=== PATIENT | female | born 1945 | race Caucasian/White ===

== ENCOUNTER 2021-11-05 13:34 | Inpatient (IN) ==
[2021-11-05 14:25] LABS: Basophils # (auto) 0.05 K/uL (0-0.2); Basophils % (auto) 0.5 %; Eosinophils # (auto) 0.42 K/uL (0-0.50); Eosinophils % (auto) 4.1 %; Hematocrit (blood only) 31.2 % (34.1-44.9); Hemoglobin 9.6 g/dl (12.0-16.0); Immature Granulocytes # (auto) 0.08 K/uL (0.00-0.02); Immature Granulocytes % (auto) 0.8 %; Lymphocytes # (auto) 1.92 K/uL (1.2-3.4); Lymphocytes % (auto) 18.8 %; Mean Corpuscular Hemoglobin 26.7 pg (25.0-34.0); Mean Corpuscular Hgb Conc 30.8 g/dL (32.0-36.0); Mean Corpuscular Volume 86.7 fL (80.0-100.0); Monocytes # (auto) 0.71 K/uL (0.24-0.82); Monocytes % (auto) 6.9 %; Neutrophils # (auto) 7.05 K/uL (1.4-6.5); Neutrophils % (auto) 68.9 %; Platelet Count 565 K/uL (130-400); RDW Coefficient of Variation 14.4 % (11.5-14.5); RDW Standard Deviation 45.5 fL (36.4-46.3); White Blood Count 10.23 K/ul (4.8-10.8)
[2021-11-05 14:38] LABS: Partial Thromboplastin Time 27.6 Seconds (21.0-31.0); Prothrombin Time 10.9 Seconds (9.0-12.0)
--- NOTE | 2021-11-05 14:47 | Electrocardiogram Report ---
Test Reason : Blood Pressure : / mmHG Vent. Rate : 068 BPM Atrial Rate : 078 BPM P-R Int : 164 ms QRS Dur : 092 ms QT Int : 450 ms P-R-T Axes : 030 031 009 degrees QTc Int : 478 ms Sinus rhythm with Premature atrial complexes , some consecutive Anterior infarct , age undetermined Abnormal ECG When compared with ECG of 24-FEB-2010 12:14, Premature atrial complexes are now Present T wave inversion now evident in Anterior leads QT has lengthened Confirmed by Jacobo Talley ([id number]) on 11/05/2021 2:47:06 PM Referred By: Confirmed By:Eduard Talley
--- NOTE | 2021-11-05 14:47 | XRay Report ---
XR chest 2V PA/lateral CLINICAL HISTORY: Chest Pain TECHNIQUE: 2 views of the chest were obtained. Comparison: Comparison is made to chest radiograph 02/25/2020 FINDINGS: No lines and tubes are seen. Calcified aortic knob is seen. The lungs are clear. No evidence of pleur al effusion or pneumothorax. IMPRESSION: No acute chest disease. ACT 112: Negative or not required by law. Electronically signed by: Fab Crooks M.D. 11/05/2021 2:45 PM
[2021-11-05 14:53] LABS: Troponin I High Sensitivity 2.9 pg/ml (0-14)
[2021-11-05 15:00] LABS: Albumin Globulin Ratio 0.9 (0.9-2); Albumin Level 3.2 gm/dl (3.4-5.0); BUN Creatinine Ratio 23.2 (10-20); Bilirubin,Total 0.3 mg/dl (0.2-1.0); Calcium 8.9 mg/dl (8.5-10.1); Creatinine Clr Calc Pharmacy 45.8 ml/min; Est GFR (African American) 64.6 ml/min; Est GFR (Non-African American) 55.7 ml/min; Globulin 3.5 gm/dl (2.5-4.0); Potassium 4.5 mmol/L (3.5-5.1); Total Protein 6.7 gm/dl (6.0-8.3)
--- NOTE | 2021-11-05 15:48 | Emergency Department Note ---
Impression & Plan Atrial tachycardia, Headache, Dizziness, Hypotension ED Provider Note NAME: ANGEL TSANG AGE: 76 SEX: F : 1945 ARRIVES VIA: Walk-In INFORMANT: Patient ED PROVIDER(S): Sam Concepcion DO CHIEF COMPLAINT: headache HPI: Patient is a 76-year-old female who presents the ER for headache. She notes that she was discharged from [facility] with extremely high blood pressures and heart rates. She was diagnosed with a heart attack. And she was discharged. She has been short of breath since then but that has been unchanged. Snacking better or worse. No chest pain. Headache is in the front and the back about a 5 out of 10. She does not want anything for pain. She does admit to some blurry vision bilaterally which has been present for the past week. No other exacerbating or remitting factors. She denies any loss of vision. No eye pain. No pain with chewing or eating. ROS: See above HPI for pertinent positives & negatives. A total of 10 systems reviewed and were otherwise negative. PAST MEDICAL HISTORY:See Below PAST SURGICAL HISTORY:See Below FAMILY HISTORY:See Below SOCIAL HISTORY:See Below HOME MEDICATIONS:See Below ALLERGIES:See Below VITALS:See Below PHYSICAL EXAMINATION: GENERAL: Sitting up in bed, alert, well appearing, well nourished, no distress, non-toxic EYE EXAM: normal conjunctiva. PERRL and EOM's intact. OROPHARYNX: no exudate, no erythema, lips, buccal mucosa, and tongue normal and mucous membranes are moist NECK: supple, no nuchal rigidity, no adenopathy, non-tender LUNGS: Clear to auscultation. Normal chest wall mechanics HEART: no murmurs, S1 normal and S2 normal ABDOMEN: abdomen soft, non-tender, normo-active bowel sounds, no masses, no rebound or guarding. UPPER EXTREMITIES: upper extremities are grossly normal. LOWER EXTREMITIES: No pitting edema. NEURO EXAM: Normal sensorium, cranial nerves II-XII intact, normal speech, no weakness of arms, no weakness of legs. No drift. Finger to nose intact. Gross sensation intact. MEDICAL DECISION MAKING: Patient is a 76-year-old female who presents the ER with a past medical history recent NSTEMI for weakness and shortness of breath with movement. IV was established blood work was obtained. EKG shows new T wave changes. Labs show no significant leukocytosis and mild anemia 9.6. INR was unremarkable. BMP along with LFTs bilirubin and troponin were unremarkable. COVID was negative. CT head was unremarkable. Throughout her stay she intermittently went in and out of a atrial tachycardia. Favor that this likely an underlying atrial flutter but cannot be certain. She was given 1 dose of Lopressor. She was up dated bedside discussed with the hospitalist admitted for further work-up to [facility]. Triage Nursing notes reviewed. Limited review of prior medical records performed Vital Signs: reviewed and remarkable for no significant abnormalities Differential diagnosis: Differential diagnoses includes but is not limited to gastritis, peptic ulcer disease, GERD, gallbladder disease, pancreatitis, small bowel obstruction, acute coronary syndrome, pericarditis, ischemic bowel, irritable bowel disease, irritable bowel syndrome, appendicitis, diverticulitis, malignancy, hernia, urinary tract infection, torsion, perforation, trauma, infectious. ER treatment provided: See below Diagnostics interpreted by me: ECG: Sinus rhythm rate of 68 Normal axis T wave inversion V3 and lead III T wave version in V4 QTC 478 Cardiac Monitoring: An order was placed for continuous cardiac monitoring. The monitor shows a rate of 70 with sinus rhythm. Laboratory studies: As stated above and show below. 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 Beliefs That Will Affect Care: None Current Living Situation: Spouse Feels Safe at Home: Yes Safety Concerns: Feels Safe At This Time Assistive Devices: Denture - Upper, Glasses and Hearing Aid - Left Allergies Allergies Allergy/AdvReac Type Severity Reaction Status Date / Time Penicillins Allergy Mild Unknown Verified 11/05/21 21:23 Home Meds Home Medications Medication Instructions Recorded Confirmed acetaminophen 500 mg tablet 1,000 mg PO BID 11/05/21 11/05/21 alendronate 70 mg tablet 70 tab PO WK 11/05/21 11/05/21 ascorbic acid (vitamin C) 500 mg 500 mg PO Q2D 11/05/21 11/05/21 tablet aspirin 81 mg tablet,delayed 81 mg PO DAILY 11/05/21 11/05/21 release biotin 10,000 mcg capsule 10,000 mcg PO DAILY 11/05/21 11/05/21 calcium carbonate 600 mg-vitamin 1 tab PO TID 11/05/21 11/05/21 D3 5 mcg (200 unit) tablet cyanocobalamin (vitamin B-12) 1,000 mcg PO DAILY 11/05/21 11/05/21 1,000 mcg tablet ergocalciferol (vitamin D2) 1,250 1,250 mcg PO .[id number] 11/05/21 11/05/21 mcg (50,000 unit) capsule (Vitamin D2) escitalopram oxalate 20 mg tablet 20 tab PO DAILY 11/05/21 11/05/21 ferrous sulfate 325 mg (65 mg 325 mg PO BID 11/05/21 11/05/21 iron) tablet gabapentin 600 mg tablet 600 tab PO TID 11/05/21 11/05/21 levothyroxine 88 mcg tablet 88 mcg PO DAILYBB 11/05/21 11/05/21 linaclotide 145 mcg capsule 145 mcg PO DAILY 11/05/21 11/05/21 (Linzess) loratadine 10 mg tablet 10 mg PO DAILY PRN Allergy Symptoms 11/05/21 11/05/21 magnesium oxide 400 mg PO DAILY 11/05/21 11/05/21 quetiapine 100 mg tablet 100 tab PO HS 11/05/21 11/05/21 ropinirole 0.5 mg tablet 0.5 tab PO HS 11/05/21 11/05/21 sotalol 80 mg tablet 80 mg PO BID 11/05/21 11/05/21 Results & Data (ED) Vital Signs Vital Signs - 24 hr 11/05/21 13:35 11/05/21 15:49 11/05/21 17:16 Temperature 36.5 C Temperature Source Temporal Artery Scan Pulse Rate 72 67 121 H Pulse Rhythm Respiratory Rate 16 20 Blood Pressure 109/66 97/56 L 104/58 L Blood Pressure Mean 80 69 Pulse Oximetry 96 96 Oxygen Delivery Method Room Air Sepsis Recent Fever Within 48 Hours No Sepsis New/Unexplained Change in Mental Status No Sepsis Action Taken by Nursing No Action Required 11/05/21 15:50 11/05/21 16:00 11/05/21 16:10 Temperature Temperature Source Pulse Rate 70 69 120 H Pulse Rhythm Respiratory Rate 14 20 16 Blood Pressure Blood Pressure Mean Pulse Oximetry 98 Oxygen Delivery Method Room Air Sepsis Recent Fever Within 48 Hours Sepsis New/Unexplained Change in Mental Status Sepsis Action Taken by Nursing 11/05/21 16:20 11/05/21 16:30 11/05/21 16:40 Temperature Temperature Source Pulse Rate 122 H 121 H 71 Pulse Rhythm Respiratory Rate 13 13 22 Blood Pressure Blood Pressure Mean Pulse Oximetry Oxygen Delivery Method Sepsis Recent Fever Within 48 Hours Sepsis New/Unexplained Change in Mental Status Sepsis Action Taken by Nursing 11/05/21 16:41 11/05/21 16:41 11/05/21 16:50 Temperature Temperature Source Pulse Rate 82 122 H Pulse Rhythm Respiratory Rate 14 23 Blood Pressure 101/68 Blood Pressure Mean 79 Pulse Oximetry 94 Oxygen Delivery Method Room Air Sepsis Recent Fever Within 48 Hours Sepsis New/Unexplained Change in Mental Status Sepsis Action Taken by Nursing 11/05/21 17:00 11/05/21 17:00 11/05/21 17:10 Temperature Temperature Source Pulse Rate 69 122 H Pulse Rhythm Respiratory Rate 15 21 Blood Pressure 104/58 L Blood Pressure Mean 73 Pulse Oximetry Oxygen Delivery Method Sepsis Recent Fever Within 48 Hours Sepsis New/Unexplained Change in Mental Status Sepsis Action Taken by Nursing 11/05/21 17:20 11/05/21 17:20 11/05/21 17:27 Temperature Temperature Source Pulse Rate 120 H 120 H Pulse Rhythm Respiratory Rate 21 15 Blood Pressure 99/69 L Blood Pressure Mean 79 Pulse Oximetry 94 Oxygen Delivery Method Room Air Sepsis Recent Fever Within 48 Hours Sepsis New/Unexplained Change in Mental Status Sepsis Action Taken by Nursing 11/05/21 17:27 11/05/21 17:30 11/05/21 17:30 Temperature Temperature Source Pulse Rate 121 H Pulse Rhythm Respiratory Rate 16 Blood Pressure 95/66 L 106/75 Blood Pressure Mean 75 85 Pulse Oximetry 94 Oxygen Delivery Method Room Air Sepsis Recent Fever Within 48 Hours Sepsis New/Unexplained Change in Mental Status Sepsis Action Taken by Nursing 11/05/21 17:40 11/05/21 18:05 11/05/21 17:45 Temperature Temperature Source Pulse Rate 119 H 120 H Pulse Rhythm Regular Respiratory Rate 18 22 Blood Pressure 104/76 Blood Pressure Mean 85 Pulse Oximetry 95 97 Oxygen Delivery Method Room Air Room Air Sepsis Recent Fever Within 48 Hours Sepsis New/Unexplained Change in Mental Status Sepsis Action Taken by Nursing 11/05/21 17:45 11/05/21 18:00 11/05/21 18:00 Temperature Temperature Source Pulse Rate 120 H 118 H Pulse Rhythm Respiratory Rate 17 16 Blood Pressure 108/75 Blood Pressure Mean 86 Pulse Oximetry 95 97 Oxygen Delivery Method Room Air Room Air Sepsis Recent Fever Within 48 Hours Sepsis New/Unexplained Change in Mental Status Sepsis Action Taken by Nursing Laboratory Data Result diagrams: 11/05/21 14:09 11/05/21 14:09 Lab Results 11/05/21 11/05/21 11/05/21 Range/Units 14:09 14:09 14:09 WBC 10.23 (4.8-10.8) K/ul RBC 3.60 L (3.93-5.22) M/uL Hgb 9.6 L (12.0-16.0) g/dl Hct 31.2 L (34.1-44.9) % MCV 86.7 (80.0-100.0) fL MCH 26.7 (25.0-34.0) pg MCHC 30.8 L (32.0-36.0) g/dL RDW Std Deviation 45.5 (36.4-46.3) fL RDW Coeff of Musa 14.4 (11.5-14.5) % Plt Count 565 H (130-400) K/uL MPV 10.0 (9.4-12.3) fL Immature Gran % (Auto) 0.8 % Neut % (Auto) 68.9 % Lymph % (Auto) 18.8 % [place] % (Auto) 6.9 % Eos % (Auto) 4.1 % Baso % (Auto) 0.5 % Neut # (Auto) 7.05 H (1.4-6.5) K/uL Lymph # (Auto) 1.92 (1.2-3.4) K/uL [place] # (Auto) 0.71 (0.24-0.82) K/uL Eos # (Auto) 0.42 (0-0.50) K/uL Baso # (Auto) 0.05 (0-0.2) K/uL Immature Gran # (Auto) 0.08 H (0.00-0.02) K/uL ESR (0-30) mm/hr PT 10.9 (9.0-12.0) Seconds INR 1.0 (0.9-1.1) APTT 27.6 (21.0-31.0) Seconds PTT Ratio 1.0 Sodium 138 (136-145) mmol/L Potassium 4.5 (3.5-5.1) mmol/L Chloride 105 (98-107) mmol/L Carbon Dioxide 26 (21-32) mmol/L Anion Gap 7 (3-11) BUN 23 (6-23) mg/dl Creatinine 0.99 (0.6-1.2) mg/dl Est Cr Clr Drug Dosing 45.8 ml/min Est GFR ( Amer) 64.6 ml/min Est GFR (Non-Af Amer) 55.7 ml/min BUN/Creatinine Ratio 23.2 H (10-20) Glucose 99 (70-99(Fasting)) mg/dl Calcium 8.9 (8.5-10.1) mg/dl Magnesium (1.7-2.4) mg/dl Total Bilirubin 0.3 (0.2-1.0) mg/dl AST 29 (13-39) U/L ALT 30 (7-52) U/L Alkaline Phosphatase 70 (34-104) U/L Troponin I High Sens 2.9 (0-14) pg/ml Total Protein 6.7 (6.0-8.3) gm/dl Albumin 3.2 L (3.4-5.0) gm/dl Globulin 3.5 (2.5-4.0) gm/dl Albumin/Globulin Ratio 0.9 (0.9-2) SARS-CoV-2, RNA, NAAT (NEGATIVE) 11/05/21 11/05/21 11/05/21 Range/Units 14:09 14:09 17:45 WBC (4.8-10.8) K/ul RBC (3.93-5.22) M/uL Hgb (12.0-16.0) g/dl Hct (34.1-44.9) % MCV (80.0-100.0) fL MCH (25.0-34.0) pg MCHC (32.0-36.0) g/dL RDW Std Deviation (36.4-46.3) fL RDW Coeff of Musa (11.5-14.5) % Plt Count (130-400) K/uL MPV (9.4-12.3) fL Immature Gran % (Auto) % Neut % (Auto) % Lymph % (Auto) % [place] % (Auto) % Eos % (Auto) % Baso % (Auto) % Neut # (Auto) (1.4-6.5) K/uL Lymph # (Auto) (1.2-3.4) K/uL [place] # (Auto) (0.24-0.82) K/uL Eos # (Auto) (0-0.50) K/uL Baso # (Auto) (0-0.2) K/uL Immature Gran # (Auto) (0.00-0.02) K/uL ESR 80 H (0-30) mm/hr PT (9.0-12.0) Seconds INR (0.9-1.1) APTT (21.0-31.0) Seconds PTT Ratio Sodium (136-145) mmol/L Potassium (3.5-5.1) mmol/L Chloride (98-107) mmol/L Carbon Dioxide (21-32) mmol/L Anion Gap (3-11) BUN (6-23) mg/dl Creatinine (0.6-1.2) mg/dl Est Cr Clr Drug Dosing ml/min Est GFR ( Amer) ml/min Est GFR (Non-Af Amer) ml/min BUN/Creatinine Ratio (10-20) Glucose (70-99(Fasting)) mg/dl Calcium (8.5-10.1) mg/dl Magnesium 2.4 (1.7-2.4) mg/dl Total Bilirubin (0.2-1.0) mg/dl AST (13-39) U/L ALT (7-52) U/L Alkaline Phosphatase (34-104) U/L Troponin I High Sens (0-14) pg/ml Total Protein (6.0-8.3) gm/dl Albumin (3.4-5.0) gm/dl Globulin (2.5-4.0) gm/dl Albumin/Globulin Ratio (0.9-2) SARS-CoV-2, RNA, NAAT NEGATIVE (NEGATIVE) Administered Medications Discontinued Medications Gadobutrol (Gadobutrol 65ml Vial) 5.5 ml IV ONCE ONE Stop: 11/05/21 20:02 Last Admin: 11/05/21 20:02 Dose: 5.5 ml Documented By: AF(2) Sodium Chloride (Nss 1000ml) 500 mls @ 999 mls/hr IV .Q31M ONE Stop: 11/05/21 17:25 Last Infusion: 11/05/21 18:00 Dose: 0 mls/hr Documented By: Admin: 11/05/21 17:24 Dose: 999 mls/hr Documented By: HG Metoprolol Tartrate (Metoprolol Tartrate 1 Mg/Ml Vial) 2.5 mg IV NOW STA Stop: 11/05/21 16:56 Last Admin: 11/05/21 17:16 Dose: 2.5 mg Documented By: LIS Imaging Data Radiologist's Impression: Chest X-Ray 11/05/21 13:42 XR chest 2V PA/lateral CLINICAL HISTORY: Chest Pain TECHNIQUE: 2 views of the chest were obtained. Comparison: Comparison is made to chest radiograph 02/25/2020 FINDINGS: No lines and tubes are seen. Calcified aortic knob is seen. The lungs are clear. No evidence of pleural effusion or pneumothorax. IMPRESSION: No acute chest disease. ACT 112: Negative or not required by law. Electronically signed by: Fab Crooks M.D. 11/05/2021 2:[address] 11/05/21 15:41 CT head/brain wo con CLINICAL HISTORY: shell COMPARISON STUDY: No previous studies for comparison. CT DOSE: 638.56 mGycm TECHNIQUE: Standard CT of the Brain was performed without IV contrast. A dose lowering technique was utilized adhering to the principles of ALARA. FINDINGS: Extraaxial space: There is no evidence for subdural hematoma. There are no extra-axial fluid collections. Ventricles and cisterns: The ventricles are mildly dilated bilaterally. There is no evidence for midline shift or mass effect. Parenchyma: There is no subarachnoid or intraparenchymal hemorrhage. There is no evidence for an acute infarct or cerebral edema. . There is mild cerebral cor tical atrophy and decreased attenuation in the periventricular white matter representing remote small vessel disease. There are no gross mass lesions. Osseous structures: There is no evidence for an acute fracture. The visualized paranasal sinuses are clear. The mastoid air cells are clear bilaterally. Soft tissues: There is no evidence for focal soft tissue swelling. IMPRESSION: 1. No acute intracerebral pathology. 2. Mild cerebral cortical atrophy and remote small vessel disease. ACT 112: Negative or not required by law. Electronically signed by: Kenny Suh M.D. 11/05/2021 4:37 PM Discharge Plan Visit Data Chief Complaint: Headache Stated Complaint: HEADACHE, BLURRY VISION, @[facility], ED Provider: Sam Concepcion Discharge Problem: Atrial tachycardia, Headache, Dizziness, Hypotension Patient Disposition: Admitted As Inpatient Discharge Instructions Interventions: ED Discharge Assessment Last Done: 11/05/21 20:24
--- NOTE | 2021-11-05 16:39 | CT Scan Report ---
CT head/brain wo con CLINICAL HISTORY: shell COMPARISON STUDY: No previous studies for comparison. CT DOSE: 638.56 mGycm TECHNIQUE: Standard CT of the Brain was performed without IV contrast. A dose lowering technique was utilized adhering to the principles of ALARA. FINDINGS: Extraaxial space: There is no evidence for subdural hematoma. There are no extra-axial fluid collecti ons. Ventricles and cisterns: The ventricles are mildly dilated bilaterally. There is no evidence for midl ine shift or mass effect. Parenchyma: There is no subarachnoid or intraparenchymal hemorrhage. There is no evidence for an acut e infarct or cerebral edema. . There is mild cerebral cortical atrophy and decreased attenuation in t he periventricular white matter representing remote small vessel disease. There are no gross mass les ions. Osseous structures: There is no evidence for an acute fracture. The visualized paranasal sinuses are clear. The mastoid air cells are clear bilaterally. Soft tissues: There is no evidence for focal soft tissue swelling. IMPRESSION: 1. No acute intracerebral pathology. 2. Mild cerebral cortical atrophy and remote small vessel disease. ACT 112: Negative or not required by law. Electronically signed by: Kenny Suh M.D. 11/05/2021 4:37 PM
[2021-11-05] MEDS ORDERED: METOPROLOL TARTRATE 1 MG/ML VIAL IV STA (16:55)
[2021-11-05] MEDS ORDERED: SODIUM CHLORIDE 0.9% 1000ML 500 ML IV ONE (16:55)
--- NOTE | 2021-11-05 18:31 | History & Physical Report ---
Date of Service November 05, 2021 Assessment & Plan (1) Atrial tachycardia: (2) Headache: (3) Dizziness: (4) Blurry vision, bilateral: (5) Hypertension: (6) Anemia: Plan 76 year old female presenting to the ED with persistent dizziness, headache, fatigue, headache, and labile HR/BP for 2 weeks and had inpatient evaluation at [facility] 10[facility]28[facility]11[facility]02 for the same without improvement in symptoms. Atrial tachycardia- HR in 120 in ED throughout my encounter. EKG reviewed. Seen by cardio at [place] and her toprol was switched to sotalol- did not see cardio note though. Will monitor on tele, start on lopressor 25 bid, with iv lopressor prn, check echo, consult cardio. Hold sotalol for now. States labile BP in 60s- 140s at home ?tachybrady syndrome. Her fatigue, dyspnea and dizziness likely from this. Electrolytes stable. Further management per cardio. Headache- ongoing symptoms for 2 weeks, no exacerbating or relieving factors per patient ?related to blurry vision. CT head unremarkable. No new neurological symptoms. Will check MRI brain and ESR. Consult neuro. Tylenol prn Blurry vision- bilateral. Ongoing for 2 weeks now. No diplopia. Uses bifocal lens, changed last year. ?related to her lens. Recommended OP ophthalmology evaluation HTN- BP in 100s but states her BP was in 200s at one point. Her lisnopril was discontinued during discharge from [facility]. Monitor. Anemia- seen by GI and hematology at [facility] and stated iron deficiency and OP follow up for endoscopy/colonoscopy. Also if no improvement with iron, stated she might need iv iron transfusion and if no improvement bone marrow biopsy. DM-2- diet controlled per patient. Check A1c. SSI prn if needed. DVT ppx- sc heparin Dispo- Admit to PCU on tele Full code Updated daughter at bedside History of Present Illness Chief Complaint: Dizziness, fatigue, headache, blurry vision, labile heart rate and blood pressure Primary Care Provider: Darwin Beckford MD 76 year old female with h/o PSVT, PAF, HTN, DM, hypothyroid who presented to the ED with dizziness, fatigue, headache, blurry vision, labile heart rate and blood pressure. She has had these symptoms for 2 weeks now. She was admitted at [facility] from 10/28-11/02 for the same complaints. She was seen by cardio, GI and hematology there for her arrhythmia and anemia. She found to have PAT and her toprol was discontinued and started on sotalol. Also her Hb dropped to 8 from 10 and was seen by GI and hemonc and started on oral iron therapy, no endoscopies were done. She was discharged on 11/02 but states she did not feel any improvement while at the hospital or after discharge, and hence came to our hospital for further evaluation. States her HR ranges between 60s to 140s. She was previously very active but feels fatigued and dyspneic for the past 2 weeks since having these issues. Also feels dizzy when she is ambulating or doing something and goes away with resting for a while but denies any orthostatic symptoms. No vertigo. Also has occipital and frontal headache, constant, with no exacerbation or relieving factors- takes tylenol as needed which does not usually help much. Also has bilateral blurry vision but no diplopia. Uses bifocal lens last changed a year ago. No hearing loss or tinnitus. No numbness or tingling. No numbness, weakness tingling or other neurological symptoms. No h/o migraine or prior headaches. Denies any orthopnea or PND. States has h/o PAF during perioperative period in 2019 and was on anticoagulation for a while but then taken off. No h/o CAD, CVA, VTE, lung disease. Never smoker. No recent viral or flu like illness. Allergies Allergy/AdvReac Type Severity Reaction Status Date / Time PCN Allergy Mild unknown Uncoded 02/24/10 12:19 Home Medications Medication Instructions Recorded Confirmed Type acetaminophen 500 mg tablet 1,000 mg PO BID 11/05/21 11/05/21 History alendronate 70 mg tablet 70 tab PO WK 11/05/21 11/05/21 History ascorbic acid (vitamin C) 500 mg 500 mg PO Q2D 11/05/21 11/05/21 History tablet aspirin 81 mg tablet,delayed 81 mg PO DAILY 11/05/21 11/05/21 History release biotin 10,000 mcg capsule 10,000 mcg PO DAILY 11/05/21 11/05/21 History calcium carbonate 600 mg-vitamin 1 tab PO TID 11/05/21 11/05/21 History D3 5 mcg (200 unit) tablet cyanocobalamin (vitamin B-12) 1,000 mcg PO DAILY 11/05/21 11/05/21 History 1,000 mcg tablet ergocalciferol (vitamin D2) 1,250 1,250 mcg PO .[id number] 11/05/21 11/05/21 History mcg (50,000 unit) capsule (Vitamin D2) escitalopram oxalate 20 mg tablet 20 tab PO DAILY 11/05/21 11/05/21 History ferrous sulfate 325 mg (65 mg 325 mg PO BID 11/05/21 11/05/21 History iron) tablet gabapentin 600 mg tablet 600 tab PO TID 11/05/21 11/05/21 History levothyroxine 88 mcg tablet 88 mcg PO DAILYBB 11/05/21 11/05/21 History linaclotide 145 mcg capsule 145 mcg PO DAILY 11/05/21 11/05/21 History (Linzess) loratadine 10 mg tablet 10 mg PO DAILY PRN Allergy Symptoms 11/05/21 11/05/21 Hi story magnesium oxide 400 mg PO DAILY 11/05/21 11/05/21 History quetiapine 100 mg tablet 100 tab PO HS 11/05/21 11/05/21 History ropinirole 0.5 mg tablet 0.5 tab PO HS 11/05/21 11/05/21 History sotalol 80 mg tablet 80 mg PO BID 11/05/21 11/05/21 History Past Med/Surg History Social History Smoking Status: Never smoker Preferred Language: Togolese Feels Safe at Home: Yes Review of Systems Review of Systems: All systems reviewed & are unremarkable except as noted in Subjective Physical Exam Physical Exam: General: Sitting comfortably in bed, not in distress, on room air HEENT: EOMI, VIPIN, MMM. No diplopia but blurriness reported in both eyes Chest: Clear breath sounds bilaterally, no wheezes or crackles CVS: Regular but tachycardic, normal heart sounds, no murmur Abdomen: Soft, non tender, not distended, normal bowel sounds Neuro: Awake, alert, oriented, conversing well, non focal exam Extremities: No cyanosis, clubbing or edema Results & Data Results & Data ([facility]) Vital Signs (Past 12 Hours) Vital Signs Temp Pulse Resp BP Pulse Ox O2 Del Method 11/05/21 18:05 120 H 22 97 Room Air 11/05/21 17:40 119 H 18 95 Room Air 11/05/21 17:30 121 H 16 94 Room Air 11/05/21 17:30 106/75 11/05/21 17:27 95/66 L 11/05/21 17:27 120 H 15 94 Room Air 11/05/21 17:20 120 H 21 11/05/21 17:20 99/69 L 11/05/21 17:10 122 H 21 11/05/21 17:00 69 15 11/05/21 17:00 104/58 L 11/05/21 16:50 122 H 23 11/05/21 16:41 101/68 94 Room Air 11/05/21 16:41 82 14 11/05/21 16:40 71 22 11/05/21 16:30 121 H 13 11/05/21 16:20 122 H 13 11/05/21 16:10 120 H 16 11/05/21 16:00 69 20 98 Room Air 11/05/21 15:50 70 14 11/05/21 17:16 121 H 104/58 L 11/05/21 15:49 67 20 97/56 L 96 Room Air 11/05/21 13:35 36.5 C 72 16 109/66 96 Laboratory Results Short CBC 11/05/21 Range/Units 14:09 WBC 10.23 (4.8-10.8) K/ul Hgb 9.6 L (12.0-16.0) g/dl Hct 31.2 L (34.1-44.9) % Plt Count 565 H (130-400) K/uL BMP 11/05/21 14:09 Sodium 138 Potassium 4.5 Chloride 105 Carbon Dioxide 26 BUN 23 Creatinine 0.99 Glucose 99 Calcium 8.9 Liver Function 11/05/21 Range/Units 14:09 Total Bilirubin 0.3 (0.2-1.0) mg/dl AST 29 (13-39) U/L ALT 30 (7-52) U/L Alkaline Phosphatase 70 (34-104) U/L Albumin 3.2 L (3.4-5.0) gm/dl Diagnostic Findings Chest X-Ray 11/05/21 13:42 XR chest 2V PA/lateral CLINICAL HISTORY: Chest Pain TECHNIQUE: 2 views of the chest were obtained. Comparison: Comparison is made to chest radiograph 02/25/2020 FINDINGS: No lines and tubes are seen. Calcified aortic knob is seen. The lungs are clear. No evidence of pleural effusion or pneumothorax. IMPRESSION: No acute chest disease. ACT 112: Negative or not required by law. Electronically signed by: Fab Crooks M.D. 11/05/2021 2:[address] 11/05/21 15:41 CT head/brain wo con CLINICAL HISTORY: shell COMPARISON STUDY: No previous studies for comparison. CT DOSE: 638.56 mGycm TECHNIQUE: Standard CT of the Brain was performed without IV contrast. A dose lowering technique was utilized adhering to the principles of ALARA. FINDINGS: Extraaxial space: There is no evidence for subdural hematoma. There are no extra-axial fluid collections. Ventricles and cisterns: The ventricles are mildly dilated bilaterally. There is no evidence for midline shift or mass effect. Parenchyma: There is no subarachnoid or intraparenchymal hemorrhage. There is no evidence for an acute infarct or cerebral edema. . There is mild cerebral cortical atrophy and decreased attenuation in the periventricular white matter representing remote small vessel disease. There are no gross mass lesions. Osseous structures: There is no evidence for an acute fracture. The visualized paranasal sinuses are clear. The mastoid air cells are clear bilaterally. Soft tissues: There is no evidence for focal soft tissue swelling. IMPRESSION: 1. No acute intracerebral pathology. 2. Mild cerebral cortical atrophy and remote small vessel disease. ACT 112: Negative or not required by law. Electronically signed by: Kenny Suh M.D. 11/05/2021 4:37 PM Code Status & VTE Plan VTE Prophylaxis Plan VTE Prophylaxis will be ordered: Yes
[2021-11-05] MEDS ORDERED: GADOBUTROL 65ML VIAL IV ONE (20:01)
--- NOTE | 2021-11-05 21:10 | Magnetic Resonance Report ---
Brain MRI WITH AND WITHOUT CONTRAST HISTORY: persistent headache TECHNIQUE: Multiplanar multisequence MRI of the brain was performed both before and after the intrave nous administration of contrast. COMPARISON STUDY: Head CT 11/05/2021. FINDINGS: There is no mass, hematoma, midline shift, or acute infarct. The paranasal sinuses are opal r. The mastoid air cells are clear. The ventricles and sulci demonstrate mild age-related involutiona l changes. A few punctate scattered foci of T2 hyperintensity seen within the periventricular and sub cortical white matter are nonspecific but suggestive of mild microvascular ischemic changes. The stacey r vascular flow voids at the skull base are well-maintained. Evidence for bilateral lens replacement. IMPRESSION: No acute intracranial abnormality. A few punctate scattered foci of T2 hyperintensity seen within the periventricular and subcortical white matter are nonspecific but favor microvascular ischemic change . ACT 112: Negative or not required by law. Electronically signed by: Solo Alejandre M.D. 11/05/2021 9:07 PM
[2021-11-05] MEDS ORDERED: ONDANSETRON INJ 2 MG/ML 2 ML VIAL IV PRN (21:17)
[2021-11-05] MEDS ORDERED: METOPROLOL TARTRATE 1 MG/ML VIAL IV PRN (21:17)
[2021-11-05] MEDS: QUEtiapine FUMARATE 200 MG TAB PO SCH (21:59)
[2021-11-05] MEDS: SODIUM CHLORIDE 0.9% 1000ML 1,000 ML IV SCH (21:59)
[2021-11-05] MEDS: rOPINIRole HCL 0.25 MG TABLET PO SCH (21:59)
[2021-11-05] MEDS: METOPROLOL TARTRATE 25 MG TAB PO SCH (21:59)
[2021-11-05] MEDS: FERROUS SULFATE 325 MG TAB PO SCH (22:00)
[2021-11-05] MEDS: HEPARIN SOD 5,000 UNIT/0.5 ML VIAL SQ SCH (22:00)
[2021-11-05] MEDS: GABAPENTIN 300 MG CAP PO SCH (22:00)
[2021-11-05] MEDS: ACETAMINOPHEN 325 MG TAB PO PRN (22:01)
[2021-11-05] MEDS: MELATONIN 3 MG TAB PO PRN (22:01)
[2021-11-06] MEDS: LEVOTHYROXINE SODIUM 88 MCG TABLET PO SCH (06:22)
[2021-11-06 07:25] LABS: Estimated Average Glucose 126 mg/dl
[2021-11-06 08:01] LABS: Hematocrit (blood only) 27.1 % (34.1-44.9); Hemoglobin 8.2 g/dl (12.0-16.0); Mean Corpuscular Hgb Conc 30.3 g/dL (32.0-36.0); Mean Corpuscular Volume 89.1 fL (80.0-100.0); Mean Platelet Volume 10.2 fL (9.4-12.3); Platelet Count 467 K/uL (130-400); RDW Coefficient of Variation 14.6 % (11.5-14.5); RDW Standard Deviation 47.1 fL (36.4-46.3); Red Blood Count 3.04 M/uL (3.93-5.22); White Blood Count 7.63 K/ul (4.8-10.8)
[2021-11-06 08:35] LABS: BUN Creatinine Ratio 24.7 (10-20); Creatinine Clr Calc Pharmacy 59.8 ml/min; Est GFR (African American) 87.5 ml/min; Est GFR (Non-African American) 75.5 ml/min; Potassium 3.8 mmol/L (3.5-5.1)
[2021-11-06] MEDS: ACETAMINOPHEN 325 MG TAB PO PRN (08:35)
[2021-11-06] MEDS: CYANOCOBALAMIN (B-12) 500 MCG TABLET PO SCH (08:35)
[2021-11-06] MEDS: MAGNESIUM OXIDE 400 MG TAB PO SCH (08:35)
[2021-11-06] MEDS: HEPARIN SOD 5,000 UNIT/0.5 ML VIAL SQ SCH ×2 (08:35→21:13)
[2021-11-06] MEDS: ESCITALOPRAM OXALATE 20 MG TAB PO SCH (08:36)
[2021-11-06] MEDS: FERROUS SULFATE 325 MG TAB PO SCH ×2 (08:36→21:11)
[2021-11-06] MEDS: LINACLOTIDE 145 MCG CAPSULE PO SCH (08:36)
[2021-11-06] MEDS: GABAPENTIN 300 MG CAP PO SCH ×2 (08:36→14:16)
[2021-11-06] MEDS: ASPIRIN 81 MG ECTAB PO SCH (08:36)
[2021-11-06] MEDS: METOPROLOL TARTRATE 25 MG TAB PO SCH (08:36)
[2021-11-06 08:52] LABS: Magnesium 2.3 mg/dl (1.7-2.4)
[2021-11-06] MEDS ORDERED: NON-FORMULARY MEDICATION (Linaclotide [Linzess] 145 mcg capsule) PO SCH (09:00)
[2021-11-06] MEDS: SODIUM CHLORIDE 0.9% 1000ML 1,000 ML IV SCH (10:12)
--- NOTE | 2021-11-06 12:06 | Neurology Consultation ---
Date of Consultation November 06, 2021 Assessment & Plan (1) Headache: 1. bilateral temples tender with palpation- possible christianity arteritis 2. sed rate 80 3. headache had been daily x 2 weeks - not positional 4. MRI brain - no acute findings 5. TTE- no ASD 6. start prednisone 60 mg daily 7. consult general surgery for temporal artery biopsy 8. will need ophthalmology referral (2) Dizziness: (3) Blurry vision, bilateral: 1. will need ophthalmology referral Supervising Physician Co-Signing Physician Notes Patient was seen and examined this afternoon and discussed with Agnes Marinelli PA-C. I agree with her recommendations as noted below. This is a 76 year old Female with HX of PAF not on anticoagulation due to anemia admitted with complaint of new onset bitemporal headache as well as occipital although maximal in the temporal regions. She denies similar headaches in the past. Denies phtophobia, phonophobia, nausea, vomiting, recent illness or COVID 19 infection, or recent concussion or trauma. no new Medications. She did not recieve the COVID vaccine. She also notes new blurry vision in both eyes with no jaw pain or trouble chewing. On examine she is a thin appearing female. No distess. Appears pleasant. Speech is clear. Tongue midline. EOMI. Pupils symmetric. No ptosis. No dysconjugate gaze. Facial sensation intact. Face is stmmetric w smile She has tenderness to palpation in both pterion or temporal areas. No palpable vessel. No tenderness to palpation in greater occipital nerve area. Sed rate elavated at 80. MRI brain reviewed and my impression is normal appearing MRI brain. Recommend repeat Sed rate and CRP which i Have ordered. Discussed concern for possible GCA w patient which is conern for new onset headache after the age of 61 with changes in vision. Recommmend starting Prednisone 60 mg daily with GI prophylaxis. Recommend surgery consultation for temporal artery biopsy. I did discuss with patient that this will or may be likely on an outpatient basis. Will need rheumatology and ophthalmology follow up as outpatient. Patient agreed to plan of care. History of Present Illness Reason for Consultation: persistent headache, blurry vision Requesting Physician: Brooke Patiño MD Attending Physician: Brooke Patiño MD History of Present Illness Radha is a 76 year old female with PMH- PSVT, PAF, HTN, DM, hypothyroid who presented to the [facility] ED 11/05/21 with dizziness, fatigue, headache, blurry vision, labile heart rate and blood pressure. She has had these symptoms for 2 weeks now. She was admitted at [facility] from 10/28-11/02 for the same complaints. She was seen by cardio, GI and hematology there for her arrhythmia and anemia. She found to have PAT and her topol was discontinued and started on sotalol. Also her hemaglobin dropped to 8 from 10 and was seen by GI and hem onc and started on oral iron therapy, no endoscopies were done. She was discharged on 11/02 but states she did not feel any improvement while at the ospital or after discharge. She then came to [facility] for further evaluation. Her HR ranges between 60s to 140s. She was previously very active but feels fatigued and dyspneic for the past 2 weeks since having these issues. Also feels dizzy when she is ambulating or doing something and goes away with resting for a while but denies any orthostatic symptoms. No vertigo. Also has occipital and frontal headache, constant, with no exacerbation or relieving factors- takes tylenol as needed which does not usually help much. Also has bilateral blurry vision but no diplopia. Uses bifocal lens last changed a year ago. no history of migraines. She is sleeping when entering the room. She started having headaches and blurred vision about 2 weeks ago. She was seen at the [facility] and they felt it was related to decrease in caffeine intake. the headaches are pressure not pounding and her temples are tender to touch are not positional. She can tolerated steroids. non smoker, no etOH use, moderate caffeine use. denies CP, SOB, abdominal pain, swallowing issues, falls, syncope, N, V. Allergies Allergy/AdvReac Type Severity Reaction Status Date / Time Penicillins Allergy Mild Unknown Verified 11/05/21 21:23 Home Medications Medication Instructions Recorded Confirmed Type acetaminophen 500 mg tablet 1,000 mg PO BID 11/05/21 11/05/21 History alendronate 70 mg tablet 70 tab PO WK 11/05/21 11/05/21 History ascorbic acid (vitamin C) 500 mg 500 mg PO Q2D 11/05/21 11/05/21 History tablet aspirin 81 mg tablet,delayed 81 mg PO DAILY 11/05/21 11/05/21 History release biotin 10,000 mcg capsule 10,000 mcg PO DAILY 11/05/21 11/05/21 History calcium carbonate 600 mg-vitamin 1 tab PO TID 11/05/21 11/05/21 History D3 5 mcg (200 unit) tablet cyanocobalamin (vitamin B-12) 1,000 mcg PO DAILY 11/05/21 11/05/21 History 1,000 mcg tablet ergocalciferol (vitamin D2) 1,250 1,250 mcg PO .[id number] 11/05/21 11/05/21 History mcg (50,000 unit) capsule (Vitamin D2) escitalopram oxalate 20 mg tablet 20 tab PO DAILY 11/05/21 11/05/21 History ferrous sulfate 325 mg (65 mg 325 mg PO BID 11/05/21 11/05/21 History iron) tablet gabapentin 600 mg tablet 600 tab PO TID 11/05/21 11/05/21 History levothyroxine 88 mcg tablet 88 mcg PO DAILYBB 11/05/21 11/05/21 History linaclotide 145 mcg capsule 145 mcg PO DAILY 11/05/21 11/05/21 History (Linzess) loratadine 10 mg tablet 10 mg PO DAILY PRN Allergy Symptoms 11/05/21 11/05/21 History magnesium oxide 400 mg PO DAILY 11/05/21 11/05/21 History quetiapine 100 mg tablet 100 tab PO HS 11/05/21 11/05/21 History ropinirole 0.5 mg tablet 0.5 tab PO HS 11/05/21 11/05/21 History sotalol 80 mg tablet 80 mg PO BID 11/05/21 11/05/21 History Patient History Social History Smoking Status: Never smoker Hx Alcohol Use: No Hx Substance Use: No Preferred Language: Maltese Communication Ability: Effective Account Officer Required: No Beliefs That Will Affect Care: None Current Living Situation: Spouse Feels Safe at Home: Yes Safety Concerns: Feels Safe At This Time Assistive Devices: Denture - Upper, Glasses and Hearing Aid - Left Review of Systems Review of Systems: All systems reviewed & are unremarkable except as noted in HPI & below Physical Exam Physical Exam: Physical Exam: Constitutional: appearance nourished, healthy and normal Ears, Nose, Mouth and Throat: mucous membranes moist, no injection and skin normal, eyes normal, tenderness bilaterally temples with touch Cardiovascular: irregular Respiratory: clear to auscultation (CTA) and no rales, ronchi or wheeze Musculoskeletal: no peripheral edema and good distal pulses Skin: no stigmata of neurocutaneous disease noted and normal and intact Eyes: extraocular muscles intact (EOMI) and pupils equal, round and reactive to light (PERRL) NEUROLOGIC EXAMINATION: Mental status: Alert and interactive Oriented to full date and location Oriented to person Speech fluent with no evidence of aphasia Cranial Nerves smile symmetric, eye brow raise right does no lift symmetrically Reflexes: Deep tendon reflexes were decrease bilaterally LE Sensory: intact to light cool touch, vibration, GT proprioception intact Coordination: finger to nose Gait/Stance: Posture lying in bed Motor: Negative for pronator drift of out stretched arms with eyes closed. 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 5/5 bilaterally hip flex 5/5 bilaterally Results & Data ([facility]) Vital Signs (Past 12 Hours) Vital Signs Temp Pulse Resp BP Pulse Ox O2 Del Method 11/06/21 08:02 36.6 C 77 17 98/60 L 92 Room Air 11/06/21 03:35 36.6 C 58 L 18 90/54 L 94 Room Air Laboratory Results Abnormal lab results 11/05/21 11/05/21 11/05/21 Range/Units 14:09 14:09 14:09 RBC 3.60 L (3.93-5.22) M/uL Hgb 9.6 L (12.0-16.0) g/dl Hct 31.2 L (34.1-44.9) % MCHC 30.8 L (32.0-36.0) g/dL RDW Std Deviation (36.4-46.3) fL RDW Coeff of Musa (11.5-14.5) % Plt Count 565 H (130-400) K/uL Neut # (Auto) 7.05 H (1.4-6.5) K/uL Immature Gran # (Auto) 0.08 H (0.00-0.02) K/uL ESR 80 H (0-30) mm/hr Chloride (98-107) mmol/L BUN/Creatinine Ratio 23.2 H (10-20) Glucose (70-99(Fasting)) mg/dl Hemoglobin A1c (4.5-5.6) % Calcium (8.5-10.1) mg/dl Albumin 3.2 L (3.4-5.0) gm/dl 11/05/21 11/06/21 11/06/21 Range/Units 14:09 07:20 07:20 RBC 3.04 L (3.93-5.22) M/uL Hgb 8.2 L (12.0-16.0) g/dl Hct 27.1 L (34.1-44.9) % MCHC 30.3 L (32.0-36.0) g/dL RDW Std Deviation 47.1 H (36.4-46.3) fL RDW Coeff of Musa 14.6 H (11.5-14.5) % Plt Count 467 H (130-400) K/uL Neut # (Auto) (1.4-6.5) K/uL Immature Gran # (Auto) (0.00-0.02) K/uL ESR (0-30) mm/hr Chloride 110 H (98-107) mmol/L BUN/Creatinine Ratio 24.7 H (10-20) Glucose 150 H (70-99(Fasting)) mg/dl Hemoglobin A1c 6.0 H (4.5-5.6) % Calcium 8.0 L (8.5-10.1) mg/dl Albumin (3.4-5.0) gm/dl Diagnostic Findings CXR- no acute findings CT head-No acute intracerebral pathology. Mild cerebral cortical atrophy and remote small vessel disease. MRI brain-No acute intracranial abnormality. A few punctate scattered foci of T2 hyperintensity seen within the periventricular and subcortical white matter are nonspecific but favor microvascular ischemic change. TTE- 55-60% EF no ASD
--- NOTE | 2021-11-06 12:26 | Electrocardiogram Report ---
Test Reason : Blood Pressure : / mmHG Vent. Rate : 121 BPM Atrial Rate : 121 BPM P-R Int : 208 ms QRS Dur : 096 ms QT Int : 316 ms P-R-T Axes : 237 -06 -30 degrees QTc Int : 448 ms Unusual P axis, possible ectopic atrial tachycardia When compared with ECG of 05-NOV-2021 14:00, Ectopic atrial rhythm has replaced Sinus rhythm Vent. rate has increased BY 53 BPM Confirmed by Jacobo Talley ([id number]) on 11/06/2021 12:26:24 PM Referred By: REFERRED SELF Confirmed By:Eduard Talley
--- NOTE | 2021-11-06 14:02 | Cardiology Consultation ---
Date of Consultation November 06, 2021 Assessment & Plan (1) Atrial tachycardia: (2) Dizziness: (3) Anemia: Plan Patient admitted for recurrent dizziness and headaches. At time of consult, she was having frequent bouts of atrial tach, but does not seem to be symptomatic in the exam room. Per cardiology notes from [place], similar findings several weeks ago when she was started on sotalol. Will resume sotalol 80 mg BID as this was initiated last week and likely not contributing to ongoing symptoms. Will monitor on telemetry to see if this aids her frequent arrhythmias. Will need to monitor QT/QTc closely as she is on other meds that could prolong QT interval. Her QT was acceptable on admission. Zofran discontinued. Repeat EKG this afternoon pre sotalol. Repeat EKG 2 hours after sotalol. Her hbg is trending lower. She has no evidence of GI bleed. Will monitor. Hospitalist following. HS troponin was unremarkable. Echo with preserved LVEF, no significant valvular disease. Neuro also consulted for persistent headaches adn dizziness. Head CT/Brain MRI without acute findings. Case discussed with Dr. Ybarra. Will follow. Supervising Physician Co-Signing Physician Notes Patient seen and examined at the bedside. 76-year-old female admitted with dizziness, chills, diaphoresis, and headache. Recently hospitalized in [place]. According to records she was prescribed sotalol for treatment of supraventricular tachycardia. Medication currently on hold. During exam telemetry reveals PSVT at a rate of 120 bpm. Patient denies any associated symptoms. No chest discomfort or shortness of breath. Reports remote history of atrial fibrillation, however, she was not prescribed anticoagulation. PE: VSS. GEN: NAD, AAOx3. Heart: Regular with frequent ectopy, normal S1-S2. No murmur. Lungs: Clear bilateral, no rales, rhonchi, wheeze. Extremities: No edema. A/P: Agree with above PA-C history, physical exam, assessment plan. Telemetry revealing frequent supraventricular ectopy and paroxysmal supraventricular tachycardia. Recommend restart sotalol, 80 mg twice daily. Discontinue Seroquel due to potential interaction with sotalol. Monitor ECG daily. Admission s ymptoms do not appear to be related to supraventricular ectopy or PSVT. No evidence of atrial fibrillation since admission. No symptomatic bradycardia, significant pauses, or heart block. We will attempt to obtain records from outpatient schedule hanger and recent hospitalization in [place]. History of Present Illness Reason for Consultation: Atrial Tach; Dizziness Requesting Physician: Dr. Patiño Attending Physician: Dr. Valdez History of Present Illness Patient is a 76 year old female who presents to [facility] with complaints of persistent dizziness, headache and lightheaded for the last several weeks. She presented to [facility] approx 2 weeks ago for similar complaints. Records reviewed. Found to have multifocal atrial tach. Cardiology was consulted and she was started on sotalol [address] of her metoprolol. Echo revealed normal LV systolic function. Troponin mildly elevated but it was thought this was due to atrial tach. She had no chest pain during admission. There were notes about her developing intermittent 2nd degree AV block, but was asymptomatic. She returned home without improvement in her symptoms and then presented to [facility] for evaluation. She notes persistent dizziness and headaches. Neuro was consulted as well. Sotalol was held on admission. Transitioned back to metoprolol. Unfortunately she is having frequent bouts of atrial tach lasting seconds to minutes with rapid rates. She is unaware of the palpitations, currently happening at time of consult. She does report dizziness at the time. No high degree AV block on telemetry thus far. Echo with normal LV systolic function and no significant valvular disease. Troponin was unremarkable on admission. She reports remote history of possible afib many years ago, evaluated by [place] cardiology at that time. She does not recall being on anticoagulation, only treated with metoprolol. Possibly atrial tach at that time as well. Allergies Allergy/AdvReac Type Severity Reaction Status Date / Time Penicillins Allergy Mild Unknown Verified 11/05/21 21:23 Home Medications Medication Instructions Recorded Confirmed Type acetaminophen 500 mg tablet 1,000 mg PO BID 11/05/21 11/05/21 History alendronate 70 mg tablet 70 tab PO WK 11/05/21 11/05/21 History ascorbic acid (vitamin C) 500 mg 500 mg PO Q2D 11/05/21 11/05/21 History tablet aspirin 81 mg tablet,delayed 81 mg PO DAILY 11/05/21 11/05/21 History release biotin 10,000 mcg capsule 10,000 mcg PO DAILY 11/05/21 11/05/21 History calcium carbonate 600 mg-vitamin 1 tab PO TID 11/05/21 11/05/21 History D3 5 mcg (200 unit) tablet cyanocobalamin (vitamin B-12) 1,000 mcg PO DAILY 11/05/21 11/05/21 History 1,000 mcg tablet ergocalciferol (vitamin D2) 1,250 1,250 mcg PO .[id number] 11/05/21 11/05/21 History mcg (50,000 unit) capsule (Vitamin D2) escitalopram oxalate 20 mg tablet 20 tab PO DAILY 11/05/21 11/05/21 History ferrous sulfate 325 mg (65 mg 325 mg PO BID 11/05/21 11/05/21 History iron) tablet gabapentin 600 mg tablet 600 tab PO TID 11/05/21 11/05/21 History levothyroxine 88 mcg tablet 88 mcg PO DAILYBB 11/05/21 11/05/21 History linaclotide 145 mcg capsule 145 mcg PO DAILY 11/05/21 11/05/21 History (Linzess) loratadine 10 mg tablet 10 mg PO DAILY PRN Allergy Symptoms 11/05/21 11/05/21 History magnesium oxide 400 mg PO DAILY 11/05/21 11/05/21 History quetiapine 100 mg tablet 100 tab PO HS 11/05/21 11/05/21 History ropinirole 0.5 mg tablet 0.5 tab PO HS 11/05/21 11/05/21 History sotalol 80 mg tablet 80 mg PO BID 11/05/21 11/05/21 History Patient History Social History Smoking Status: Never smoker Hx Alcohol Use: No Hx Substance Use: No Preferred Language: Tamaz[place] Communication Ability: Effective Rn Hemo Dialysis Required: No Beliefs That Will Affect Care: None Current Living Situation: Spouse Feels Safe at Home: Yes Safety Concerns: Feels Safe At This Time Assistive Devices: None Review of Systems Review of Systems: All systems reviewed & are unremarkable except as noted in HPI & below Physical Exam Constitutional: WD/WN, vitals as above well nourished; no acute distress Neck: trachea midline, no thyromegaly Respiratory: normal respiratory effort, lungs clear to auscultation Cardiovascular: Rate/Rhythm: regular rhythm and + tachycardic Heart Sounds: no murmur Vessels: no JVD Extremities: no edema Gastrointestinal (Abdomen): normal bowel sounds, soft, nontender, no hepatosplenomegaly Skin: no rashes, warm and dry Neurologic: PERRL, EOMI, accommodation nl, no face palsy, no dysarthria Psychiatric: A+Ox3, euthymic affect Results & Data ([facility]) Vital Signs (Past 12 Hours) Vital Signs Temp Pulse Resp BP Pulse Ox O2 Del Method 11/06/21 12:14 36.4 C L 79 18 115/70 97 Room Air 11/06/21 08:02 36.6 C 77 17 98/60 L 92 Room Air 11/06/21 03:35 36.6 C 58 L 18 90/54 L 94 Room Air Laboratory Results Laboratory Results WBC 7.63 K/ul (4.8-10.8) 11/06/21 07:20 RBC 3.04 M/uL (3.93-5.22) L 11/06/21 07:20 Hgb 8.2 g/dl (12.0-16.0) L 11/06/21 07:20 Hct 27.1 % (34.1-44.9) L 11/06/21 07:20 MCV 89.1 fL (80.0-100.0) 11/06/21 07:20 MCH 27.0 pg (25.0-34.0) 11/06/21 07:20 MCHC 30.3 g/dL (32.0-36.0) L 11/06/21 07:20 RDW Std Deviation 47.1 fL (36.4-46.3) H 11/06/21 07:20 RDW Coeff of Musa 14.6 % (11.5-14.5) H 11/06/21 07:20 Plt Count 467 K/uL (130-400) H 11/06/21 07:20 MPV 10.2 fL (9.4-12.3) 11/06/21 07:20 Immature Gran % (Auto) 0.8 % 11/05/21 14:09 Neut % (Auto) 68.9 % 11/05/21 14:09 Lymph % (Auto) 18.8 % 11/05/21 14:09 Pike % (Auto) 6.9 % 11/05/21 14:09 Eos % (Auto) 4.1 % 11/05/21 14:09 Baso % (Auto) 0.5 % 11/05/21 14:09 Neut # (Auto) 7.05 K/uL (1.4-6.5) H 11/05/21 14:09 Lymph # (Auto) 1.92 K/uL (1.2-3.4) 11/05/21 14:09 Pike # (Auto) 0.71 K/uL (0.24-0.82) 11/05/21 14:09 Eos # (Auto) 0.42 K/uL (0-0.50) 11/05/21 14:09 Baso # (Auto) 0.05 K/uL (0-0.2) 11/05/21 14:09 Immature Gran # (Auto) 0.08 K/uL (0.00-0.02) H 11/05/21 14:09 ESR 80 mm/hr (0-30) H 11/05/21 14:09 PT 10.9 Seconds (9.0-12.0) 11/05/21 14:09 INR 1.0 (0.9-1.1) 11/05/21 14:09 APTT 27.6 Seconds (21.0-31.0) 11/05/21 14:09 PTT Ratio 1.0 11/05/21 14:09 Sodium 140 mmol/L (136-145) 11/06/21 07:20 Potassium 3.8 mmol/L (3.5-5.1) 11/06/21 07:20 Chloride 110 mmol/L (98-107) H 11/06/21 07:20 Carbon Dioxide 24 mmol/L (21-32) 11/06/21 07:20 Anion Gap 6 (3-11) 11/06/21 07:20 BUN 19 mg/dl (6-23) 11/06/21 07:20 Creatinine 0.77 mg/dl (0.6-1.2) 11/06/21 07:20 Est Cr Clr Drug Dosing 59.8 ml/min 11/06/21 07:20 Est GFR ( Amer) 87.5 ml/min 11/06/21 07:20 Est GFR (Non-Af Amer) 75.5 ml/min 11/06/21 07:20 BUN/Creatinine Ratio 24.7 (10-20) H 11/06/21 07:20 Glucose 150 mg/dl (70-99(Fasting)) H 11/06/21 07:20 POC Glucose 80 mg/dl (70-99) 11/06/21 11:21 Estimat Average Glucose 126 mg/dl 11/05/21 14:09 Hemoglobin A1c 6.0 % (4.5-5.6) H 11/05/21 14:09 Calcium 8.0 mg/dl (8.5-10.1) L 11/06/21 07:20 Magnesium 2.3 mg/dl (1.7-2.4) 11/06/21 07:20 Total Bilirubin 0.3 mg/dl (0.2-1.0) 11/05/21 14:09 AST 29 U/L (13-39) 11/05/21 14:09 ALT 30 U/L (7-52) 11/05/21 14:09 Alkaline Phosphatase 70 U/L (34-104) 11/05/21 14:09 Troponin I High Sens 2.9 pg/ml (0-14) 11/05/21 14:09 Total Protein 6.7 gm/dl (6.0-8.3) 11/05/21 14:09 Albumin 3.2 gm/dl (3.4-5.0) L 11/05/21 14:09 Globulin 3.5 gm/dl (2.5-4.0) 11/05/21 14:09 Albumin/Globulin Ratio 0.9 (0.9-2) 11/05/21 14:09 SARS-CoV-2, RNA, NAAT NEGATIVE (NEGATIVE) 11/05/21 17:45 Impressions Chest X-Ray 11/05/21 13:42 XR chest 2V PA/lateral CLINICAL HISTORY: Chest Pain TECHNIQUE: 2 views of the chest were obtained. Comparison: Comparison is made to chest radiograph 02/25/2020 FINDINGS: No lines and tubes are seen. Calcified aortic knob is seen. The lungs are clear. No evidence of pleural effusion or pneumothorax. IMPRESSION: No acute chest disease. ACT 112: Negative or not required by law. Electronically signed by: Fab Crooks M.D. 11/05/2021 2:[address] 11/05/21 15:41 CT head/brain wo con CLINICAL HISTORY: shell COMPARISON STUDY: No previous studies for comparison. CT DOSE: 638.56 mGycm TECHNIQUE: Standard CT of the Brain was performed without IV contrast. A dose lowering technique was utilized adhering to the principles of ALARA. FINDINGS: Extraaxial space: There is no evidence for subdural hematoma. There are no extra-axial fluid collections. Ventricles and cisterns: The ventricles are mildly dilated bilaterally. There is no evidence for midline shift or mass effect. Parenchyma: There is no subarachnoid or intraparenchymal hemorrhage. There is no evidence for an acute infarct or cerebral edema. . There is mild cerebral cortical atrophy and decreased attenuation in the periventricular white matter representing remote small vessel disease. There are no gross mass lesions. Osseous structures: There is no evidence for an acute fracture. The visualized paranasal sinuses are clear. The mastoid air cells are clear bilaterally. Soft tissues: There is no evidence for focal soft tissue swelling. IMPRESSION: 1. No acute intracerebral pathology. 2. Mild cerebral cortical atrophy and remote small vessel disease. ACT 112: Negative or not required by law. Electronically signed by: Kenny Suh M.D. 11/05/2021 4:37 PM Brain MRI 11/05/21 18:15 Brain MRI WITH AND WITHOUT CONTRAST HISTORY: persistent headache TECHNIQUE: Multiplanar multisequence MRI of the brain was performed both before and after the intravenous administration of contrast. COMPARISON STUDY: Head CT 11/05/2021. FINDINGS: There is no mass, hematoma, midline shift, or acute infarct. The paranasal sinuses are clear. The mastoid air cells are clear. The ventricles and sulci demonstrate mild age-related involutional changes. A few punctate scattered foci of T2 hyperintensity seen within the periventricular and subcortical white matter are nonspecific but suggestive of mild microvascular ischemic changes. The major vascular flow voids at the skull base are well-maintained. Evidence for bilateral lens replacement. IMPRESSION: No acute intracranial abnormality. A few punctate scattered foci of T2 hyperintensity seen within the periventricular and subcortical white matter are nonspecific but favor microvascular ischemic change. ACT 112: Negative or not required by law. Electronically signed by: Solo Alejandre M.D. 11/05/2021 9:07 PM Diagnostic Findings Telemetry reviewed: NSR with sinus arrhythmia and frequent bouts of multifactorial atrial tach lasting seconds to minutes. EKG on admission: Sinus rhythm with Premature atrial complexes , some consecutive Anterior infarct , age undetermined Abnormal ECG When compared with ECG of 24-FEB-2010 12:14, Premature atrial complexes are now Present T wave inversion now evident in Anterior leads QT has lengthened QT/QTc 450/478 ms REpeat EKG yesterday afternoon: Unusual P axis, possible ectopic atrial tachycardia with HR of 121 When compared with ECG of 05-NOV-2021 14:00, Ectopic atrial rhythm has replaced Sinus rhythm Vent. rate has increased BY 53 BPM QT/QTc 316/448 Echo report reviewed from current admission: LVEF 60-65% mild AI Mild MR. Mildly dilated aortic root at 4.2 cm Echo report reviewed from [place] in September 2021: Normal LV systolic function with ejection fraction 55 to 60%. Normal right ventricular size and function. Calcified aortic valve with mild regurgitation. No stenosis. Calcified mitral valve with mild regurgitation. Mildly dilated aortic root and ascending aorta measuring 4.2 cm. Grade 1 diastolic dysfunction. Medications Administered Current Inpatient Medications Acetaminophen (Acetaminophen 325 Mg Tab) 650 mg PO Q4H PRN PRN Reason: headac Stop: 12/05/21 21:16 Last Admin: 11/06/21 08:35 Dose: 650 mg Aspirin (Aspirin 81 Mg Ectab) 81 mg PO DAILY [facility] Stop: 12/06/21 08:59 Last Admin: 11/06/21 08:36 Dose: 81 mg Cyanocobalamin (Cyanocobalamin (B-12) 500 Mcg Tablet) 1,000 mcg PO DAILY [facility] Stop: 12/06/21 08:59 Last Admin: 11/06/21 08:35 Dose: 1,000 mcg Escitalopram Oxalate (Escitalopram Oxalate 20 Mg Tab) 20 mg PO DAILY [facility] Stop: 12/06/21 08:59 Last Admin: 11/06/21 08:36 Dose: 20 mg Ferrous Sulfate (Ferrous Sulfate 325 Mg Tab) 325 mg PO BID [facility] Stop: 12/05/21 20:59 Last Admin: 11/06/21 08:36 Dose: 325 mg Gabapentin (Gabapentin 300 Mg Cap) 300 mg PO TID [facility]; Protocol Stop: 12/05/21 20:59 Last Admin: 11/06/21 14:16 Dose: 300 mg Heparin Sodium (Porcine) (Heparin Sod 5,000 Unit/0.5 Ml Vial) 5,000 units SQ Q12 [facility]AF[facility] Stop: 12/05/21 20:59 Last Admin: 11/06/21 08:35 Dose: 5,000 units Sodium Chloride (Nss 1000ml) 1,000 mls @ 80 mls/hr IV .[id number] [facility]AFIA Stop: 11/06/21 18:14 Last Admin: 11/06/21 10:12 Dose: 80 mls/hr Levothyroxine Sodium (Levothyroxine Sodium 88 Mcg Tablet) 88 mcg PO DAILYBB [facility] Stop: 12/06/21 06:29 Last Admin: 11/06/21 06:22 Dose: 88 mcg Linaclotide (Linaclotide 145 Mcg Capsule) 145 mcg PO DAILY [facility] Stop: 12/06/21 08:59 Last Admin: 11/06/21 08:36 Dose: 145 mcg Magnesium Oxide (Magnesium Oxide 400 Mg Tab) 400 mg PO DAILY [facility] Stop: 12/06/21 08:59 Last Admin: 11/06/21 08:35 Dose: 400 mg Melatonin (Melatonin 3 Mg Tab) 9 mg PO HS PRN PRN Reason: Sleep Stop: 12/05/21 21:16 Last Admin: 11/05/21 22:01 Dose: 9 mg Metoprolol Tartrate (Metoprolol Tartrate 1 Mg/Ml Vial) 5 mg IV Q5M PRN PRN Reason: for sustained HR >120 Stop: 12/05/21 21:16 Quetiapine Fumarate (Quetiapine Fumarate 200 Mg Tab) 100 mg PO HS [facility]IA Stop: 12/05/21 20:59 Last Admin: 11/05/21 21:59 Dose: 100 mg Ropinirole HCl (Ropinirole Hcl 0.25 Mg Tablet) 0.25 mg PO HS [facility] Stop: 12/05/21 20:59 Last Admin: 11/05/21 21:59 Dose: 0.25 mg Sotalol HCl (Sotalol Hcl 80 Mg Tab) 80 mg PO BID [facility] Stop: 12/06/21 16:59
[2021-11-06] MEDS: SOTALOL HCL 80 MG TAB PO SCH (16:37)
[2021-11-06] MEDS ORDERED: predniSONE 20 MG TAB PO STA (17:16)
--- NOTE | 2021-11-06 19:41 | Surgery Consultation ---
Date of Consultation November 06, 2021 Assessment & Plan (1) Headache: Concern noted by neurology that patient may have temporal arteritis. Recommend proceeding as follows: Continue prednisone as you have ordered. Will defer change of any dosing to either neurology or primary service Dr. Hansen can schedule an elective temporal artery biopsy next week. (2) Dizziness: (3) Blurry vision, bilateral: History of Present Illness Reason for Consultation: Request for temporal artery biopsy Attending Physician: Brooke Patiño MD History of Present Illness This is a 76-year-old female who was admitted to [facility] from 10/28/2021 through 11/02/2021 of this year. Prior to presentation patient was complaining of dizziness, fatigue, headache, as well as blurred vision. While at [facility] the patient was noted to have paroxysmal atrial tachycardia. She was seen by cardiology and had sotalol therapy initiated. While in the hospital she was noted to have a drop of her hemoglobin from 10-8 and was seen by gastroenterology. No endoscopies were performed and patient was started on iron therapy. Was also seen by hematology for this issue. While at [facility] the patient did have a carotid Doppler that showed less than 50% stenosis on the right internal carotid artery and a normal left internal carotid artery. A ch est x-ray showed no evidence of pneumonia. CT scan of the head showed no acute intracranial abnormalities. Following discharge home the patient did not note any provement in her previously noted complaints so she came to the [facility] hospital. She continues to complain of headache which she describes as a bilateral temporal headache. She also reports blurred vision. In addition the patient does report low-grade fevers for approximately 2 weeks never exceeding 100. She specifically denies any jaw claudication, myalgias, arthralgias, or neck pain. She does continue to have blurred vision.Since arrival to [facility] she has had an echocardiogram that showed mild aortic insufficiency and mild mitral regurgitation. Her ejection fraction was 65%. Ca rdiology is seeing the patient and continued her sotalol. Due to her previously noted complaints the patient was seen by neurology who raised the possibility the patient could have had temporal arteritis and the patient was started on prednisone 60 mg daily and general surgery has been consulted for a possible temporal artery biopsy. Neurology also recommended patient undergo an ophthalmology evaluation which has not yet been completed. Diagnostic evaluation completed at [facility] thus far is included a brain MRI that showed no acute intracranial abnormalities. She is al so undergone a head CT that showed no acute intracerebral pathology. A chest x- ray showed no evidence of pneumonia. Most recent labs include a CBC from today that showed a normal white blood cell count and a hemoglobin and hematocrit of 8.2 and 27.1. Her platelet count was 467,000. She did have an erythrocyte sedimentation rate yesterday that was 80 and has decreased today to 52. Chemistry profile today showed a sodium and potassium which were normal. Her BUN and creatinine were also noted to be normal. At the time of my interview she was resting comfortably in bed and she was in no distress. Allergies Allergy/AdvReac Type Severity Reaction Status Date / Time Penicillins Allergy Mild Unknown Verified 11/05/21 21:23 Home Medications Medication Instructions Recorded Confirmed Type acetaminophen 500 mg tablet 1,000 mg PO BID 11/05/21 11/05/21 History alendronate 70 mg tablet 70 tab PO WK 11/05/21 11/05/21 History ascorbic acid (vitamin C) 500 mg 500 mg PO Q2D 11/05/21 11/05/21 History tablet aspirin 81 mg tablet,delayed 81 mg PO DAILY 11/05/21 11/05/21 History release biotin 10,000 mcg capsule 10,000 mcg PO DAILY 11/05/21 11/05/21 History calcium carbonate 600 mg-vitamin 1 tab PO TID 11/05/21 11/05/21 History D3 5 mcg (200 unit) tablet cyanocobalamin (vitamin B-12) 1,000 mcg PO DAILY 11/05/21 11/05/21 History 1,000 mcg tablet ergocalciferol (vitamin D2) 1,250 1,250 mcg PO .[id number] 11/05/21 11/05/21 History mcg (50,000 unit) capsule (Vitamin D2) escitalopram oxalate 20 mg tablet 20 tab PO DAILY 11/05/21 11/05/21 History ferrous sulfate 325 mg (65 mg 325 mg PO BID 11/05/21 11/05/21 History iron) tablet gabapentin 600 mg tablet 600 tab PO TID 11/05/21 11/05/21 History levothyroxine 88 mcg tablet 88 mcg PO DAILYBB 11/05/21 11/05/21 History linaclotide 145 mcg capsule 145 mcg PO DAILY 11/05/21 11/05/21 History (Linzess) loratadine 10 mg tablet 10 mg PO DAILY PRN Allergy Symptoms 11/05/21 11/05/21 History magnesium oxide 400 mg PO DAILY 11/05/21 11/05/21 History quetiapine 100 mg tablet 100 tab PO HS 11/05/21 11/05/21 History ropinirole 0.5 mg tablet 0.5 tab PO HS 11/05/21 11/05/21 History sotalol 80 mg tablet 80 mg PO BID 11/05/21 11/05/21 History Patient History Social History Smoking Status: Never smoker Hx Alcohol Use: No Hx Substance Use: No Preferred Language: Greek Communication Ability: Effective Home Aid Required: No Beliefs That Will Affect Care: None Current Living Situation: Spouse Feels Safe at Home: Yes Safety Concerns: Feels Safe At This Time Assistive Devices: Denture - Upper, Glasses and Hearing Aid - Left Review of Systems Constitutional: + fever Eyes: as per Subjective / HPI Blurred vision Ear, Nose, Mouth, Throat: no ear pain Respiratory: no cough and no dyspnea Cardiovascular: no chest pain Gastrointestinal: no abdominal pain, no nausea and no vomiting Genitourinary: no dysuria Musculoskeletal: no back pain, no neck pain, no joint pain and no myalgia Integumentary: no rash Neurologic: no localized weakness Physical Exam Constitutional: WD/WN, vitals as above Eyes: Peoples are equal round reactive light and accommodation, extraocular motions are intact ENMT: Ears: no hearing impairment and no external ear abnormality Mouth: no oropharynx abnormality Neck: trachea midline; neck nontender Respiratory: normal respiratory effort, lungs clear to auscultation Cardiovascular: Rate/Rhythm: regular rate and regular rhythm Vessels: + temporal artery tenderness Bilaterally, temporal arteries have palpable pulses Gastrointestinal (Abdomen): Abdomen is soft, nontender, and nondistended. There is no pain with palpation Musculoskeletal: No lower extremity edema. There is no tenderness to palpation of the patient's arms or legs indicative of myalgias Skin: no rashes Neurologic: Patient is able to move all 4 extremities and follows simple commands without noted focal deficits. Her speech is coherent and not garbled. She is alert and oriented x3. Psychiatric: A+Ox3, euthymic affect Results & Data ([facility]) Vital Signs (Past 12 Hours) Vital Signs Temp Pulse Resp BP Pulse Ox O2 Del Method 11/06/21 16:48 36.8 C 65 17 114/70 94 Room Air 11/06/21 12:14 36.4 C L 79 18 115/70 97 Room Air 11/06/21 08:02 36.6 C 77 17 98/60 L 92 Room Air PG Care Time/CCT Total # of Minutes Spent Total Time Spent with Patient: Total time spent is greater than 50% in coordination of care (as documented) at patient's floor/unit and/or counseling patient: Coding Level of Care Code 05307 Inpt Consult Level 5 Diagnoses Headache R51.9 Dizziness R42 Blurry vision, bilateral H53.8
--- NOTE | 2021-11-06 19:45 | Hospitalist Progress Note ---
Date of Service November 06, 2021 Assessment & Plan (1) Atrial tachycardia: (2) Headache: (3) Dizziness: (4) Blurry vision, bilateral: (5) Hypertension: (6) Anemia: Plan 76 year old female presenting to the ED with persistent dizziness, headache, fatigue, headache, and labile HR/BP for 2 weeks and had inpatient evaluation at [facility] 10/28-11/02 for the same without improvement in symptoms. Atrial tachycardia device sales consultant showed heart rate fluctuates between 60 to 120 HR She was started on sotalol during last admission in [place] Echo with preserved LVEF, no significant valvular disease. Cardiology on board plan to resume sotalol 80 mg twice daily Metoprolol discontinued Will monitor QT/QTc closely as she is on other meds that could prolong QT interval. Zofran discontinued. Continue monitor EKG for QT interval changes Headache associated with B/L Blurry vision Possible related to Temporal arteritis MRI head showed no acute finding Elevated ESR 80 Neuro on board recommended to start on Prednisone 60mg daily Surgery consult for temporal artery biopsy Pt will need Rheumatology and ophthalmology outpatient follow up repeat ESR CRP in am Continue monitor closely Anemia Hgb 8.2 today Pt is schedule with GI in [place] on 12/20 for possible scope Continue Iron supplement Continue monitor CBC Hypothyroidism Continue levotyroxine Will check TSH HTN BP stable DM-2 Most recent hemoglobin A1c 6 Not on any diabetes med outpaient diet controlled per patient. Continue monitor DVT ppx- sc heparin Full code Admission and Anticipated Discharge Date Admission Date: November 05, 2021 Subjective Pt was seen and examined for follow up of with persistent dizziness, blurry vision, headache, fatigue Lying in bed with no acute distress Pt said that she continues to feel the same She said that she feels like she had no energy Denies any chest pain, palpitation, dizziness and SOB Review of Systems Review of Systems: All systems reviewed & are unremarkable except as noted in Subjective Physical Exam Physical Exam: General- No acute distress Head- atraumatic Eyes- PERRL, EOMI, ENT- oropharynx clear Neck- supple, no JVD Lungs- clear to auscultation Heart- regular rhythm; no murmur Abdomen- normal bowel sounds, soft, nontender Extremities- no calf tenderness Neuro- alert, oriented x 3; PERRL, EOMI; no facial palsy; no dysarthria Skin- warm & dry Results & Data Results & Data ([facility]) Vital Signs (Past 12 Hours) Vital Signs Temp Pulse Resp BP Pulse Ox O2 Del Method 11/06/21 16:48 36.8 C 65 17 114/70 94 Room Air 11/06/21 12:14 36.4 C L 79 18 115/70 97 Room Air 11/06/21 08:02 36.6 C 77 17 98/60 L 92 Room Air
[2021-11-06] MEDS: rOPINIRole HCL 0.25 MG TABLET PO SCH (21:11)
[2021-11-06] MEDS: GABAPENTIN 600 MG TAB PO SCH (21:11)
[2021-11-06] MEDS: QUEtiapine FUMARATE 200 MG TAB PO SCH (21:12)
[2021-11-07] MEDS: LEVOTHYROXINE SODIUM 88 MCG TABLET PO SCH (06:23)
[2021-11-07 07:50] LABS: Hematocrit (blood only) 29.8 % (34.1-44.9); Hemoglobin 9.2 g/dl (12.0-16.0); Mean Corpuscular Hemoglobin 26.7 pg (25.0-34.0); Mean Corpuscular Hgb Conc 30.9 g/dL (32.0-36.0); Mean Corpuscular Volume 86.4 fL (80.0-100.0); Mean Platelet Volume 9.8 fL (9.4-12.3); Platelet Count 550 K/uL (130-400); RDW Coefficient of Variation 14.4 % (11.5-14.5); RDW Standard Deviation 45.3 fL (36.4-46.3); Red Blood Count 3.45 M/uL (3.93-5.22); White Blood Count 7.36 K/ul (4.8-10.8)
[2021-11-07] MEDS: MAGNESIUM OXIDE 400 MG TAB PO SCH (08:32)
[2021-11-07] MEDS: predniSONE 20 MG TAB PO SCH (08:32)
[2021-11-07] MEDS: CYANOCOBALAMIN (B-12) 500 MCG TABLET PO SCH (08:32)
[2021-11-07] MEDS: ESCITALOPRAM OXALATE 20 MG TAB PO SCH (08:32)
[2021-11-07] MEDS: FERROUS SULFATE 325 MG TAB PO SCH ×2 (08:32→20:32)
[2021-11-07] MEDS: PANTOprazole 40 MG TAB PO SCH (08:32)
[2021-11-07] MEDS: GABAPENTIN 600 MG TAB PO SCH ×3 (08:32→20:32)
[2021-11-07] MEDS: SOTALOL HCL 80 MG TAB PO SCH ×2 (08:32→20:32)
[2021-11-07] MEDS: ASPIRIN 81 MG ECTAB PO SCH (08:32)
[2021-11-07] MEDS: LINACLOTIDE 145 MCG CAPSULE PO SCH (08:32)
[2021-11-07] MEDS: HEPARIN SOD 5,000 UNIT/0.5 ML VIAL SQ SCH ×2 (08:33→20:33)
--- NOTE | 2021-11-07 12:39 | Surgery Progress Note ---
Date of Service November 07, 2021 Assessment & Plan (1) Blurry vision, bilateral: Plan: She is a candidate for bilateral temporal artery biopsy. If she is still here through the weekend I will try and arrange my schedule in the operating room schedule to perform the biopsy on Wednesday. We will keep her n.p.o. after midnight on Wednesday night. Discussed the risks as well as options. Answered all of her questions. She agrees with the plan. If she gets discharged over the weekend we can perform in the next week or so as an outpatient. (2) Headache: Admission and Anticipated Discharge Date Admission Date: November 05, 2021 Subjective Patient seen. For the first time in several weeks her headaches are improved. She is quite happy about that. Physical Exam Constitutional: WD/WN, vitals as above no acute distress and not ill appearing Eyes: PERRL, conjunctivae normal, anicteric sclerae EOM intact bilaterally ENMT: external ear and nose normal, oropharynx normal Ears: no hearing impairment Neck: trachea midline, no thyromegaly Respiratory: normal respiratory effort; no respiratory distress and does not use accessory muscles Cardiovascular: Rate/Rhythm: regular rate and regular rhythm Gastrointestinal (Abdomen): normal bowel sounds, soft, nontender, no hepatosplenomegaly Skin: no rashes, warm and dry Psychiatric: Orientation: alert, oriented x 3 and cooperative Results & Data ([facility]) Vital Signs (Past 12 Hours) Vital Signs Temp Pulse Resp BP Pulse Ox O2 Del Method 11/07/21 11:49 36.6 C 118 H 19 106/77 93 Room Air 11/07/21 08:21 36.5 C 62 19 117/71 95 Room Air 11/07/21 04:12 36.4 C L 70 18 109/58 L 94 Room Air PG Care Time/CCT Total # of Minutes Spent Total Time Spent with Patient: Total time spent is greater than 50% in coordination of care (as documented) at patient's floor/unit and/or counseling patient: Coding Level of Care Code 17064 Subseq Hosp Care Lvl 2 Diagnoses Blurry vision, bilateral H53.8 Headache R51.9
--- NOTE | 2021-11-07 14:23 | Cardiology Progress Note ---
Date of Service November 07, 2021 Assessment & Plan (1) Atrial tachycardia: (2) Dizziness: (3) Anemia: Plan Patient admitted for recurrent dizziness and headaches. At time of consult, she was having frequent bouts of atrial tach, but does not seem to be symptomatic in the exam room. Per cardiology notes from [place], similar findings several weeks ago when she was started on sotalol. Sotalol was held on admission to [facility] but due to recurrent atrial arrhythmias, we resumed sotalol 80 mg BID. May need dose titration to 120 mg BID based on response and recurrence of atrial tach Seroquel discontinued due to risk of Prolonged QT/QTc inteval. Will monitor. Daily EKG's If atrial tach remains persistent despite antiarrhythmic therapy over the weekend, consider EP consult next week. Her hbg is trending lower. She has no evidence of GI bleed. Will monitor. Hospitalist following. HS troponin was unremarkable. Echo with preserved LVEF, no significant valvular disease. Neuro also consulted for persistent headaches and dizziness. Head CT/Brain MRI without acute findings. Case discussed with Dr. Ybarra. Will follow. Admission and Anticipated Discharge Date Admission Date: November 05, 2021 Supervising Physician Co-Signing Physician Notes Patient seen and examined at the bedside. Frequency of PACs, atrial tachycardia improved with addition of sotalol. Seroquel discontinued. Patient continues to note intermittent lightheadedness. No chest pain or shortness of breath. Denies orthopnea, PND, or edema. PE: VSS. GEN: NAD, AAOx3. Heart: Regular with frequent ectopy, normal S1-S2. No murmur. Lungs: Clear bilateral, no rales, rhonchi, wheeze. Extremities: No edema. A/P: Agree with above PA-C history, physical exam, assessment plan. Continue sotalol 80 mg twice daily. Consider titration to 120 mg twice daily pending clinical response over the weekend. If dysrhythmia remains uncontrolled despite antiarrhythmic therapy, consider electrophysiology evaluation. 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 Subjective Patient resting comfortably in bed. reports dizziness has improved this morning but not totally resolved. She continues to have intermittent runs of atrial tachycardia on telemetry. She has no symptoms that seem to correlate with onset of arrhythmias. Frequency of arrhythmias have improved with sotalol. No chest pain. No SOB. No orthopnea, PND or edema. Review of Systems Review of Systems: All systems reviewed & are unremarkable except as noted in HPI & below Physical Exam Constitutional: WD/WN, vitals as above well nourished; no acute distress Neck: trachea midline, no thyromegaly Respiratory: normal respiratory effort, lungs clear to auscultation Cardiovascular: Rate/Rhythm: regular rhythm and + tachycardic Heart Sounds: no murmur Vessels: no JVD Extremities: no edema Gastrointestinal (Abdomen): normal bowel sounds, soft, nontender, no hepatosplenomegaly Skin: no rashes, warm and dry Neurologic: PERRL, EOMI, accommodation nl, no face palsy, no dysarthria Psychiatric: A+Ox3, euthymic affect Results & Data ([facility]) Vital Signs (Past 12 Hours) Vital Signs Temp Pulse Resp BP Pulse Ox O2 Del Method 11/07/21 11:49 36.6 C 118 H 19 106/77 93 Room Air 11/07/21 08:21 36.5 C 62 19 117/71 95 Room Air 11/07/21 04:12 36.4 C L 70 18 109/58 L 94 Room Air Laboratory Results CBC 11/07/21 Range/Units 07:25 WBC 7.36 (4.8-10.8) K/ul RBC 3.45 L (3.93-5.22) M/uL Hgb 9.2 L (12.0-16.0) g/dl Hct 29.8 L (34.1-44.9) % Plt Count 550 H (130-400) K/uL Intake and Output 11/06/21 11/07/21 11/07/21 22:59 06:59 14:59 Intake Total 760 / 2937.333 1200 / 2937.333 515 / 515 Output Total 1100 / 1100 Balance -340 / 2989.758 5720 / 1837.333 514 / 514 Intake: IV 999.333 Sodium Chloride 0.9% 1000ML 999.333 000 ml @ 80 mls/hr IV .[id number] SAFIA Rx#:[id number] Oral 760 / 960 200 / 960 515 / 515 Output: Urine 1100 / 1100 # Bowel Movements Other: # Unmeasured Voids 1 2 Weight 61.1 kg Weight Measurement Method Built in [facility] Diagnostic Findings Telemetry reviewed: NSR with frequent atrial ectopy, with intermittent runs of atrial tachycardia ranging 120-130 bpm EKG: Atrial tach at 120 bpm Stable QT/QTc measurements. 284/403 ms Medications Administered Current Inpatient Medications Acetaminophen (Acetaminophen 325 Mg Tab) 650 mg PO Q4H PRN PRN Reason: headac Stop: 12/05/21 21:16 Last Admin: 11/06/21 08:35 Dose: 650 mg Aspirin (Aspirin 81 Mg Ectab) 81 mg PO DAILY SAFIA Stop: 12/06/21 08:59 Last Admin: 11/07/21 08:32 Dose: 81 mg Cyanocobalamin (Cyanocobalamin (B-12) 500 Mcg Tablet) 1,000 mcg PO DAILY SAFIA Stop: 12/06/21 08:59 Last Admin: 11/07/21 08:32 Dose: 1,000 mcg Escitalopram Oxalate (Escitalopram Oxalate 20 Mg Tab) 20 mg PO DAILY SAFIA Stop: 12/06/21 08:59 Last Admin: 11/07/21 08:32 Dose: 20 mg Ferrous Sulfate (Ferrous Sulfate 325 Mg Tab) 325 mg PO BID SAFIA Stop: 12/05/21 20:59 Last Admin: 11/07/21 08:32 Dose: 325 mg Gabapentin (Gabapentin 600 Mg Tab) 600 mg PO TID [facility]; Protocol Stop: 12/06/21 20:59 Last Admin: 11/07/21 14:10 Dose: 600 mg Heparin Sodium (Porcine) (Heparin Sod 5,000 Unit/0.5 Ml Vial) 5,000 units SQ Q12 SAFIA Stop: 12/05/21 20:59 Last Admin: 11/07/21 08:33 Dose: 5,000 units Levothyroxine Sodium (Levothyroxine Sodium 88 Mcg Tablet) 88 mcg PO DAILYBB SAFIA Stop: 12/06/21 06:29 Last Admin: 11/07/21 06:23 Dose: 88 mcg Linaclotide (Linaclotide 145 Mcg Capsule) 145 mcg PO DAILY SAFIA Stop: 12/06/21 08:59 Last Admin: 11/07/21 08:32 Dose: 145 mcg Magnesium Oxide (Magnesium Oxide 400 Mg Tab) 400 mg PO DAILY SAFIA Stop: 12/06/21 08:59 Last Admin: 11/07/21 08:32 Dose: 400 mg Melatonin (Melatonin 3 Mg Tab) 9 mg PO HS PRN PRN Reason: Sleep Stop: 12/05/21 21:16 Last Admin: 11/05/21 22:01 Dose: 9 mg Metoprolol Tartrate (Metoprolol Tartrate 1 Mg/Ml Vial) 5 mg IV Q5M PRN PRN Reason: for sustained HR >120 Stop: 12/05/21 21:16 Pantoprazole Sodium (Pantoprazole 40 Mg Tab) 40 mg PO QAM SAFIA Stop: 12/07/21 08:59 Last Admin: 11/07/21 08:32 Dose: 40 mg Prednisone (Prednisone 20 Mg Tab) 60 mg PO DAILY SAFIA Stop: 12/07/21 08:59 Last Admin: 11/07/21 08:32 Dose: 60 mg Quetiapine Fumarate (Quetiapine Fumarate 200 Mg Tab) 100 mg PO HS SAFIA Stop: 12/05/21 20:59 Last Admin: 11/06/21 21:12 Dose: 100 mg Ropinirole HCl (Ropinirole Hcl 0.25 Mg Tablet) 0.25 mg PO HS SAFIA Stop: 12/05/21 20:59 Last Admin: 11/06/21 21:11 Dose: 0.25 mg Sotalol HCl (Sotalol Hcl 80 Mg Tab) 80 mg PO BID SAFIA Stop: 12/06/21 16:59 Last Admin: 11/07/21 08:32 Dose: 80 mg
--- NOTE | 2021-11-07 16:03 | Neurology Progress Note ---
Date of Service November 07, 2021 Assessment & Plan (1) Headache: Plan: 1. 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 sed rate 80 today 79 3. headache had been daily x 2 weeks - not positional 4. MRI brain - no acute findings 5. TTE- no ASD 6. start prednisone 60 mg daily 7. consult general surgery for temporal artery biopsy 8. will need ophthalmology referral we will sign off for now will chart check for biopsy results but if positive will need referral to rheumatology (2) Dizziness: (3) Blurry vision, bilateral: Plan: 1. will need ophthalmology referral Admission and Anticipated Discharge Date Admission Date: November 05, 2021 Supervising Physician Co-Signing Physician Notes I have discussed above patient with Dr Agnes Hopkins, neurology. Discussed with SHAN Ojeda, agree with management as above. MD Dorian Karol Garcia is a 76 year old female with PMH- PSVT, PAF, HTN, DM, hypothyroid who presented to the [facility] ED 11/05/21 with dizziness, fatigue, headache, blurry vision, labile heart rate and blood pressure. She has had these symptoms for 2 weeks now. She was admitted at [facility] from 10/28-11/02 for the same complaints. She was seen by cardio, GI and hematology there for her arrhythmia and anemia. She found to have PAT and her topol was discontinued and started on sotalol. Also her hemaglobin dropped to 8 from 10 and was seen by GI and hem onc and started on oral iron therapy, no endoscopies were done. She was discharged on 11/02 but states she did not feel any improvement while at the hospital or after discharge. She then came to [facility] for further evaluation. Her HR ranges between 60s to 140s. She was previously very active but feels fatigued and dyspneic for the past 2 weeks since having these issues. Also feels dizzy when she is ambulating or doing something and goes away with resting for a while but denies any orthostatic symptoms. No vertigo. Also has occipital and frontal headache, constant, with no exacerbation or relieving factors- takes tylenol as needed which does not usually help much. Also has bilateral blurry vision but no diplopia. Uses bifocal lens last changed a year ago. no history of migraines. She is sleeping when entering the room. She started having headaches and blurred vision about 2 weeks ago. She was seen at the [facility] and they felt it was related to decrease in caffeine intake. the headaches are pressure not pounding and her temples are tender to touch are not positional. She can tolerated steroids. non smoker, no etOH use, moderate caffeine use. She does feel better today her headaches are much improved on steroids. Her hgb and hct are still low. She had been out of bed to the bathroom. denies CP, SOB, abdominal pain, swallowing issues, falls, syncope, N, V. Review of Systems Review of Systems: All systems reviewed & are unremarkable except as noted in HPI & below Physical Exam Physical Exam: Physical Exam: Constitutional: appearance nourished, healthy and normal Ears, Nose, Mouth and Throat: mucous membranes moist, no injection and skin normal, eyes normal, tenderness bilaterally temples with touch Cardiovascular: irregular Respiratory: clear to auscultation (CTA) and no rales, ronchi or wheeze Musculoskeletal: no peripheral edema and good distal pulses Skin: no stigmata of neurocutaneous disease noted and normal and intact Eyes: extraocular muscles intact (EOMI) and pupils equal, round and reactive to light (PERRL) NEUROLOGIC EXAMINATION: Mental status: Alert and interactive Oriented to full date and location Oriented to person Speech fluent with no evidence of aphasia Cranial Nerves smile symmetric, eye brow raise right does no lift symmetrically Reflexes: Deep tendon reflexes were decrease bilaterally LE Sensory: intact to light cool touch, vibration, GT proprioception intact Coordination: finger to nose Gait/Stance: Posture lying in bed Motor: Negative for pronator drift of out stretched arms with eyes closed. 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 bilaterally hip flex 5/5 bilaterally Results & Data ([facility]) Vital Signs (Past 12 Hours) Vital Signs Temp Pulse Resp BP Pulse Ox O2 Del Method 11/07/21 15:32 36.8 C 79 19 119/69 95 Room Air 11/07/21 11:49 36.6 C 118 H 19 106/77 93 Room Air 11/07/21 08:21 36.5 C 62 19 117/71 95 Room Air 11/07/21 04:12 36.4 C L 70 18 109/58 L 94 Room Air Laboratory Results Abnormal lab results 11/06/21 11/06/21 11/07/21 Range/Units 07:20 20:42 07:25 RBC 3.45 L (3.93-5.22) M/uL Hgb 9.2 L (12.0-16.0) g/dl Hct 29.8 L (34.1-44.9) % MCHC 30.9 L (32.0-36.0) g/dL Plt Count 550 H (130-400) K/uL ESR 52 H (0-30) mm/hr POC Glucose 121 H (70-99) mg/dl C-Reactive Protein (0-0.5) mg/dl 11/07/21 11/07/21 Range/Units 07:25 07:25 RBC (3.93-5.22) M/uL Hgb (12.0-16.0) g/dl Hct (34.1-44.9) % MCHC (32.0-36.0) g/dL Plt Count (130-400) K/uL ESR 79 H (0-30) mm/hr POC Glucose (70-99) mg/dl C-Reactive Protein 7.56 H (0-0.5) mg/dl Diagnostic Findings no new imaging
--- NOTE | 2021-11-07 17:58 | Electrocardiogram Report ---
Test Reason : Blood Pressure : / mmHG Vent. Rate : 112 BPM Atrial Rate : 112 BPM P-R Int : 186 ms QRS Dur : 084 ms QT Int : 324 ms P-R-T Axes : -88 024 -05 degrees QTc Int : 442 ms Unusual P axis, possible ectopic atrial tachycardia Low voltage QRS Abnormal ECG When compared with ECG of 06-NOV-2021 16:43, (unconfirmed) Nonspecific T wave abnormality no longer evident in Lateral leads Confirmed by Jacobo Talley ([id number]) on 11/07/2021 5:58:20 PM Referred By: REFERRED SELF Confirmed By:Eduard Talley
--- NOTE | 2021-11-07 18:00 | Electrocardiogram Report ---
Test Reason : Blood Pressure : / mmHG Vent. Rate : 119 BPM Atrial Rate : 119 BPM P-R Int : 188 ms QRS Dur : 082 ms QT Int : 402 ms P-R-T Axes : 000 012 -32 degrees QTc Int : 565 ms Ectopic atrial tachycardia Low voltage QRS Prolonged QT Abnormal ECG When compared with ECG of 05-NOV-2021 17:15, Criteria for Inferior infarct are no longer Present Confirmed by Jacobo Talley ([id number]) on 11/07/2021 6:00:17 PM Referred By: REFERRED SELF Confirmed By:Eduard Talley
--- NOTE | 2021-11-07 18:07 | Electrocardiogram Report ---
Test Reason : Blood Pressure : / mmHG Vent. Rate : 121 BPM Atrial Rate : 121 BPM P-R Int : 182 ms QRS Dur : 078 ms QT Int : 284 ms P-R-T Axes : 255 012 -37 degrees QTc Int : 403 ms Unusual P axis, possible ectopic atrial tachycardia Low voltage QRS Abnormal ECG When compared with ECG of 06-NOV-2021 18:23, (unconfirmed) Nonspecific T wave abnormality now evident in Lateral leads Confirmed by Jacobo Talley ([id number]) on 11/07/2021 6:07:05 PM Referred By: REFERRED SELF Confirmed By:Eduard Talley
[2021-11-07] MEDS: rOPINIRole HCL 0.25 MG TABLET PO SCH (20:33)
--- NOTE | 2021-11-07 21:29 | Hospitalist Progress Note ---
Date of Service November 07, 2021 Assessment & Plan (1) Atrial tachycardia: (2) Headache: (3) Dizziness: (4) Blurry vision, bilateral: (5) Hypertension: (6) Anemia: Plan 76 year old female presenting to the ED with persistent dizziness, headache, fatigue, headache, and labile HR/BP for 2 weeks and had inpatient evaluation at [facility] 10/28-11/02 for the same without improvement in symptoms. 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 Cardiology on board Sotalol 80mg BID resumed Metoprolol discontinued Continue monitor QT/QTc closely as she is on other meds that could prolong QT interval. Zofran and seroquel discontinued. Continue monitor EKG for QT interval changes Headache associated with B/L Blurry vision Possible related to Temporal arteritis MRI head showed no acute finding Elevated ESR 80 on admission, Most recent ESR 79 Neuro on board recommended to start on Prednisone 60mg daily Surgery consult for temporal artery biopsy - if remains in the hospital for the weekend, surgery will perform the biopsy on Wednesday. Pt will need Rheumatology and ophthalmology outpatient follow up Continue monitor closely Anemia Hgb 9.2 today Pt is schedule with GI in [place] on 12/20 for possible scope Continue Iron supplement Continue monitor CBC Hypothyroidism Continue levothyroxine TSH wnl HTN BP stable DM-2 Most recent hemoglobin A1c 6 Not on any diabetes med outpaient diet controlled per patient. Continue monitor DVT ppx- sc heparin Full code Admission and Anticipated Discharge Date Admission Date: November 05, 2021 Subjective Pt was seen and examined for follow up of with persistent dizziness, blurry vision, headache, fatigue Lying in bed with no acute distress Pt said that she does not have any headache and blurry vision She said that she feels a little better today Denies any chest pain, palpitation, dizziness and SOB Review of Systems Review of Systems: All systems reviewed & are unremarkable except as noted in Subjective Physical Exam Physical Exam: General- No acute distress Head- atraumatic Eyes- PERRL, EOMI, ENT- oropharynx clear Neck- supple, no JVD Lungs- clear to auscultation Heart- regular rhythm; no murmur Abdomen- normal bowel sounds, soft, nontender Extremities- no calf tenderness Neuro- alert, oriented x 3; PERRL, EOMI; no facial palsy; no dysarthria Skin- warm & dry Results & Data Results & Data ([facility]) Vital Signs (Past 12 Hours) Vital Signs Temp Pulse Resp BP Pulse Ox O2 Del Method 11/07/21 19:52 36.5 C 73 17 110/62 95 Room Air 11/07/21 15:32 36.8 C 79 19 119/69 95 Room Air 11/07/21 11:49 36.6 C 118 H 19 106/77 93 Room Air
[2021-11-07] MEDS: MELATONIN 3 MG TAB PO PRN (22:11)
[2021-11-07] MEDS ORDERED: ZOLPIDEM TARTRATE 5 MG TAB PO STA (23:59)
[2021-11-08] MEDS: LEVOTHYROXINE SODIUM 88 MCG TABLET PO SCH (05:58)
[2021-11-08 07:56] LABS: Creatinine Clr Calc Pharmacy 60.9 ml/min; Est GFR (African American) 87.5 ml/min; Est GFR (Non-African American) 75.5 ml/min
[2021-11-08] MEDS: ASPIRIN 81 MG ECTAB PO SCH (08:27)
[2021-11-08] MEDS: CYANOCOBALAMIN (B-12) 500 MCG TABLET PO SCH (08:28)
[2021-11-08] MEDS: GABAPENTIN 600 MG TAB PO SCH ×3 (08:28→20:52)
[2021-11-08] MEDS: FERROUS SULFATE 325 MG TAB PO SCH ×2 (08:28→20:51)
[2021-11-08] MEDS: ESCITALOPRAM OXALATE 20 MG TAB PO SCH (08:28)
[2021-11-08] MEDS: predniSONE 20 MG TAB PO SCH (08:29)
[2021-11-08] MEDS: MAGNESIUM OXIDE 400 MG TAB PO SCH (08:29)
[2021-11-08] MEDS: PANTOprazole 40 MG TAB PO SCH (08:29)
[2021-11-08] MEDS: LINACLOTIDE 145 MCG CAPSULE PO SCH (08:29)
[2021-11-08] MEDS: HEPARIN SOD 5,000 UNIT/0.5 ML VIAL SQ SCH ×2 (08:29→20:52)
[2021-11-08] MEDS: SOTALOL HCL 80 MG TAB PO SCH ×2 (08:30→20:57)
--- NOTE | 2021-11-08 11:04 | Cardiology Progress Note ---
Date of Service November 08, 2021 Assessment & Plan (1) Atrial tachycardia: (2) Dizziness: (3) Anemia: Plan Patient admitted for recurrent dizziness and headaches. At time of consult, she was having frequent bouts of atrial tach, but does not seem to be symptomatic in the exam room. Per cardiology notes from [place], similar findings several weeks ago when she was started on sotalol. Sotalol was held on admission to [facility] but due to recurrent atrial arrhythmias, we resumed sotalol 80 mg BID. 11/08/2021: Rhythm better control with occasional breakthrough atrial arrhythmias. Resting bradycardia precludes further upward titration of sotalol we will continue current plans and follow on telemetry as neurologic/rheumatologic evaluation proceeds Admission and Anticipated Discharge Date Admission Date: November 05, 2021 Subjective Patient was seen and examined, chart, medications, telemetry reviewed. Patient denies any cardiac symptoms but telemetry demonstrates brief runs of atrial tachycardia last evening. No chest pain or shortness of breath no nausea or vomiting Physical Exam Constitutional: WD/WN, vitals as above well nourished; no acute distress Neck: trachea midline, no thyromegaly Respiratory: normal respiratory effort, lungs clear to auscultation Cardiovascular: Rate/Rhythm: regular rhythm and + tachycardic Heart Sounds: no murmur Vessels: no JVD Extremities: no edema Gastrointestinal (Abdomen): normal bowel sounds, soft, nontender, no hepatosplenomegaly Skin: no rashes, warm and dry Neurologic: PERRL, EOMI, accommodation nl, no face palsy, no dysarthria Psychiatric: A+Ox3, euthymic affect Results & Data ([facility]) Vital Signs (Past 12 Hours) Vital Signs Temp Pulse Resp BP Pulse Ox O2 Del Method 11/08/21 07:07 36.4 C L 64 18 132/62 96 Room Air 11/08/21 05:45 36.7 C 56 L 16 96/61 L 95 Room Air Laboratory Results Laboratory Results - last 24 hr 11/08/21 06:54 Creatinine 0.77 Est Cr Clr Drug Dosing 60.9 Est GFR ( Amer) 87.5 Est GFR (Non-Af Amer) 75.5 ECG Additional Comments: 11/08/2021: Sinus bradycardia at 41 bpm, QT corrected 405
--- NOTE | 2021-11-08 11:25 | Electrocardiogram Report ---
Test Reason : Blood Pressure : / mmHG Vent. Rate : 041 BPM Atrial Rate : 041 BPM P-R Int : 186 ms QRS Dur : 100 ms QT Int : 492 ms P-R-T Axes : 060 019 005 degrees QTc Int : 405 ms Marked sinus bradycardia Abnormal ECG When compared with ECG of 07-NOV-2021 09:30, Sinus rhythm has replaced Ectopic atrial rhythm Vent. rate has decreased BY [address] no longer depressed in Anterior leads Nonspecific T wave abnormality no longer evident in Anterolateral leads Confirmed by Rah Pinto ([id number]) on 11/08/2021 11:25:34 AM Referred By: REFERRED SELF Confirmed By:Rah Pinto
--- NOTE | 2021-11-08 15:38 | Hospitalist Progress Note ---
Date of Service November 08, 2021 Assessment & Plan (1) Atrial tachycardia: (2) Headache: (3) Dizziness: (4) Blurry vision, bilateral: (5) Hypertension: (6) Anemia: Plan 76 year old female presenting to the ED with persistent dizziness, headache, fatigue, headache, and labile HR/BP for 2 weeks and had inpatient evaluation at [facility] 10/28-11/02 for the same without improvement in symptoms. Atrial tachycardia surveillance system monitor showed heart rate fluctuates between 60 to 120 HR She was started on sotalol during last admission in [place] [facility] with preserved LVEF, no significant valvular disease. Cardiology on board Sotalol 80mg BID resumed Metoprolol discontinued Continue monitor QT/QTc closely as she is on other meds that could prolong QT interval. Zofran and seroquel discontinued. Continue monitor EKG for QT interval changes Headache associated with B/L Blurry vision Possible related to Temporal arteritis MRI head showed no acute finding Elevated ESR 80 on admission, Most recent ESR 79 Neuro on board recommended to start on Prednisone 60mg daily Surgery consult for temporal artery biopsy - if remains in the hospital for the weekend, surgery will perform the biopsy on Wednesday. Pt will need Rheumatology and ophthalmology outpatient follow up Continue monitor closely Anemia Hgb 9.2 Pt is schedule with GI in [place] on 12/20 for possible scope Continue Iron supplement Continue monitor CBC Hypothyroidism Continue levothyroxine TSH wnl HTN BP stable DM-2 Most recent hemoglobin A1c 6 Not on any diabetes med outpaient diet controlled per patient. Continue monitor DVT ppx- sc heparin Full code Admission and Anticipated Discharge Date Admission Date: November 05, 2021 Subjective Pt was seen and examined for follow up of with persistent dizziness, blurry vision, headache, fatigue Lying in bed with no acute distress Pt said that she has not had any headache in the last 2 days she said that she did not sleep last night She said that she cannot take ambien due to the side effect Denies any chest pain, palpitation, dizziness and SOB Review of Systems Review of Systems: All systems reviewed & are unremarkable except as noted in Subjective Physical Exam Physical Exam: General- No acute distress Head- atraumatic Eyes- PERRL, EOMI, ENT- oropharynx clear Neck- supple, no JVD Lungs- clear to auscultation Heart- regular rhythm; no murmur Abdomen- normal bowel sounds, soft, nontender Extremities- no calf tenderness Neuro- alert, oriented x 3; PERRL, EOMI; no facial palsy; no dysarthria Skin- warm & dry Results & Data Results & Data ([facility]) Vital Signs (Past 12 Hours) Vital Signs Temp Pulse Resp BP Pulse Ox O2 Del Method 11/08/21 14:59 37.1 C 50 L 18 129/82 95 Room Air 11/08/21 11:16 36.5 C 58 L 17 97/62 L 97 Room Air 11/08/21 07:07 36.4 C L 64 18 132/62 96 Room Air 11/08/21 05:45 36.7 C 56 L 16 96/61 L 95 Room Air
[2021-11-08] MEDS: rOPINIRole HCL 0.25 MG TABLET PO SCH (20:53)
[2021-11-08] MEDS ORDERED: SOTALOL HCL 80 MG TAB PO SCH (21:00)
[2021-11-09] MEDS ORDERED: diphenhydrAMINE Capsule 25 MG CAP PO PRN (01:06)
[2021-11-09] MEDS: LEVOTHYROXINE SODIUM 88 MCG TABLET PO SCH (05:45)
[2021-11-09] MEDS: FERROUS SULFATE 325 MG TAB PO SCH ×2 (08:05→20:06)
[2021-11-09] MEDS: ASPIRIN 81 MG ECTAB PO SCH (08:05)
[2021-11-09] MEDS: GABAPENTIN 600 MG TAB PO SCH ×3 (08:05→20:06)
[2021-11-09] MEDS: LINACLOTIDE 145 MCG CAPSULE PO SCH (08:05)
[2021-11-09] MEDS: CYANOCOBALAMIN (B-12) 500 MCG TABLET PO SCH (08:05)
[2021-11-09] MEDS: MAGNESIUM OXIDE 400 MG TAB PO SCH (08:05)
[2021-11-09] MEDS: predniSONE 20 MG TAB PO SCH (08:06)
[2021-11-09] MEDS: ESCITALOPRAM OXALATE 20 MG TAB PO SCH (08:06)
[2021-11-09] MEDS: HEPARIN SOD 5,000 UNIT/0.5 ML VIAL SQ SCH ×2 (08:06→20:07)
[2021-11-09] MEDS: SOTALOL HCL 80 MG TAB PO SCH ×2 (08:06→20:06)
[2021-11-09] MEDS: PANTOprazole 40 MG TAB PO SCH (08:06)
[2021-11-09] MEDS ORDERED: LORazepam 0.5 MG TAB PO PRN (11:03)
--- NOTE | 2021-11-09 11:09 | Cardiology Progress Note ---
Date of Service November 09, 2021 Assessment & Plan (1) Atrial tachycardia: (2) Dizziness: (3) Anemia: Plan Patient admitted for recurrent dizziness and headaches. At time of consult, she was having frequent bouts of atrial tach, but does not seem to be symptomatic in the exam room. Per cardiology notes from [place], similar findings several weeks ago when she was started on sotalol. Sotalol was held on admission to [facility] but due to recurrent atrial arrhythmias, we resumed sotalol 80 mg BID. 11/09/2021: No significant changes and patient is asymptomatic. Rhythm better control with occasional breakthrough atrial arrhythmias, appears atrial tachycardia r. Resting bradycardia precludes further upward titration of sotalol we will continue current plans and follow on telemetry as neurologic/rheumatologic evaluation proceeds Admission and Anticipated Discharge Date Admission Date: November 05, 2021 Subjective Was seen and examined, chart, medications, telemetry reviewed. Brief run of atrial tachycardia at times last night asymptomatic. Heart rates trending low when sleeping. No dizziness or lightheadedness. No fevers chills or unexplained infections Review of Systems Review of Systems: All systems reviewed & are unremarkable except as noted in Subjective Physical Exam Constitutional: WD/WN, vitals as above well nourished; no acute distress Neck: trachea midline, no thyromegaly Respiratory: normal respiratory effort, lungs clear to auscultation Cardiovascular: Rate/Rhythm: regular rhythm and + tachycardic Heart Sounds: no murmur Vessels: no JVD Extremities: no edema Gastrointestinal (Abdomen): normal bowel sounds, soft, nontender, no hepatosplenomegaly Skin: no rashes, warm and dry Neurologic: PERRL, EOMI, accommodation nl, no face palsy, no dysarthria Psychiatric: A+Ox3, euthymic affect Results & Data ([facility]) Vital Signs (Past 12 Hours) Vital Signs Temp Pulse Pulse Resp BP Pulse Ox O2 Del Method 11/09/21 08:00 68 11/09/21 08:00 Room Air 11/09/21 08:00 36.8 C 67 20 109/62 97 Room Air 11/09/21 04:35 36.6 C 119 H 18 115/70 96 Room Air 11/08/21 23:25 46 L
--- NOTE | 2021-11-09 12:55 | Electrocardiogram Report ---
Test Reason : Blood Pressure : / mmHG Vent. Rate : 114 BPM Atrial Rate : 115 BPM P-R Int : 000 ms QRS Dur : 096 ms QT Int : 426 ms P-R-T Axes : 000 024 -43 degrees QTc Int : 587 ms Unusual P axis, possible ectopic atrial tachycardia T wave abnormality, consider inferior ischemia Prolonged QT Abnormal ECG When compared with ECG of 08-NOV-2021 06:21, Significant changes have occurred Confirmed by Rah Pinto ([id number]) on 11/09/2021 12:54:53 PM Referred By: REFERRED SELF Confirmed By:Rah Pinto
--- NOTE | 2021-11-09 16:13 | Hospitalist Progress Note ---
Date of Service November 09, 2021 Assessment & Plan (1) Atrial tachycardia: (2) Headache: (3) Dizziness: (4) Blurry vision, bilateral: (5) Hypertension: (6) Anemia: Plan 76 year old female presenting to the ED with persistent dizziness, headache, fatigue, headache, and labile HR/BP for 2 weeks and had inpatient evaluation at [facility] 10/28-11/02 for the same without improvement in symptoms. 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 Cardiology on board Sotalol 80mg BID resumed Metoprolol discontinued Continue monitor QT/QTc closely as she is on other meds that could prolong QT interval. Zofran and seroquel discontinued. Continue monitor EKG for QT interval changes Headache associated with B/L Blurry vision Possible related to Temporal arteritis MRI head showed no acute finding Elevated ESR 80 on admission, Most recent ESR 79 Neuro on board recommended to start on Prednisone 60mg daily Surgery consult for temporal artery biopsy - if remains in the hospital for the weekend, surgery will perform the biopsy on Wednesday. Pt will need Rheumatology and ophthalmology outpatient follow up Continue monitor closely will make NPO after midnight for temporal biopsy Anemia Hgb 9.2 Pt is schedule with GI in [place] on 12/20 for possible scope Continue Iron supplement Continue monitor CBC Insomnia Seroquel was discontinued She cannot tolerate ambien Will trial a low dose of Ativan Hypothyroidism Continue levothyroxine TSH wnl HTN BP stable DM-2 Most recent hemoglobin A1c 6 Not on any diabetes med outpaient diet controlled per patient. Continue monitor DVT ppx- sc heparin Full code Admission and Anticipated Discharge Date Admission Date: November 05, 2021 Subjective Pt was seen and examined for follow up of dizziness, blurry vision, headache, fatigue Lying in bed with no acute distress she said that she did not sleep last night Denies any chest pain, palpitation, dizziness and SOB Review of Systems Review of Systems: All systems reviewed & are unremarkable except as noted in Subjective Physical Exam Physical Exam: General- No acute distress Head- atraumatic Eyes- PERRL, EOMI, ENT- oropharynx clear Neck- supple, no JVD Lungs- clear to auscultation Heart- regular rhythm; no murmur Abdomen- normal bowel sounds, soft, nontender Extremities- no calf tenderness Neuro- alert, oriented x 3; PERRL, EOMI; no facial palsy; no dysarthria Skin- warm & dry Results & Data Results & Data ([facility]) Vital Signs (Past 12 Hours) Vital Signs Temp Pulse Pulse Resp BP Pulse Ox O2 Del Method 11/09/21 11:39 36.4 C L 72 16 108/67 97 Room Air 11/09/21 08:00 68 11/09/21 08:00 Room Air 11/09/21 08:00 36.8 C 67 20 109/62 97 Room Air 11/09/21 04:35 36.6 C 119 H 18 115/70 96 Room Air
[2021-11-09] MEDS: rOPINIRole HCL 0.25 MG TABLET PO SCH (20:07)
[2021-11-10] MEDS: LEVOTHYROXINE SODIUM 88 MCG TABLET PO SCH (06:11)
[2021-11-10 07:54] LABS: Creatinine Clr Calc Pharmacy 57.2 ml/min; Est GFR (African American) 81.1 ml/min
[2021-11-10] MEDS: FERROUS SULFATE 325 MG TAB PO SCH ×2 (09:41→21:05)
[2021-11-10] MEDS: ESCITALOPRAM OXALATE 20 MG TAB PO SCH (09:41)
[2021-11-10] MEDS: ASPIRIN 81 MG ECTAB PO SCH (09:41)
[2021-11-10] MEDS: GABAPENTIN 600 MG TAB PO SCH ×3 (09:41→21:05)
[2021-11-10] MEDS: PANTOprazole 40 MG TAB PO SCH (09:41)
[2021-11-10] MEDS: CYANOCOBALAMIN (B-12) 500 MCG TABLET PO SCH (09:41)
[2021-11-10] MEDS: MAGNESIUM OXIDE 400 MG TAB PO SCH (09:41)
[2021-11-10] MEDS: SOTALOL HCL 80 MG TAB PO SCH ×2 (09:42→21:05)
[2021-11-10] MEDS: predniSONE 20 MG TAB PO SCH (09:42)
[2021-11-10] MEDS: HEPARIN SOD 5,000 UNIT/0.5 ML VIAL SQ SCH ×2 (09:43→21:06)
[2021-11-10] MEDS ORDERED: LORazepam 0.5 MG TAB PO PRN (10:06)
--- NOTE | 2021-11-10 10:07 | Hospitalist Progress Note ---
Date of Service November 10, 2021 Assessment & Plan (1) Atrial tachycardia: (2) Headache: (3) Dizziness: (4) Blurry vision, bilateral: (5) Hypertension: (6) Anemia: Plan 76 year old female presenting to the ED with persistent dizziness, headache, fatigue, headache, and labile HR/BP for 2 weeks and had inpatient evaluation at [facility] 10/28-11/02 for the same without improvement in symptoms. 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 Cardiology on board Continue Sotalol 80mg BID Metoprolol discontinued Continue monitor QT/QTc closely as she is on other meds that could prolong QT interval. Zofran and seroquel discontinued. Continue monitor EKG for QT interval changes tele monitor showed frequent PAT last night cardiology recommended to get nocturnal oximetry given nocturnal episode Will keep K above 4 Headache associated with B/L Blurry vision Possible related to Temporal arteritis MRI head showed no acute finding Elevated ESR 80 on admission, Most recent ESR 79 Neuro on board recommended to start on Prednisone 60mg daily Surgery consult for temporal artery biopsy - if remains in the hospital for the weekend, surgery will perform the biopsy on Wednesday. Pt will need Rheumatology and ophthalmology outpatient follow up Continue monitor closely Keep NPO this morning for temporal biopsy Neuro recommended to continue prednisone 60mg daily and follow up with rheumatology that they will decide when to taper it Anemia Hgb 9.2 Pt is schedule with GI in [place] on 12/20 for possible scope Continue Iron supplement Continue monitor CBC Insomnia Seroquel was discontinued She cannot tolerate ambien Ativan seems to help a little, will try 0.5mg prn hs tonight Hypothyroidism Continue levothyroxine TSH wnl HTN BP stable DM-2 Most recent hemoglobin A1c 6 Not on any diabetes med outpaient diet controlled per patient. Continue monitor DVT ppx- sc heparin Full code disposition will discharge when stable from cardiology standpoint Admission and Anticipated Discharge Date Admission Date: November 05, 2021 Subjective Pt was seen and examined for follow up of dizziness, blurry vision, headache, fatigue Lying in bed with no acute distress She said that she slept alittle more last night until 2am tele monitor reviewed revealed frequent PAT overnight currently she is NPO and waiting for biopsy Denies any chest pain, palpitation, dizziness and SOB Review of Systems Review of Systems: All systems reviewed & are unremarkable except as noted in Subjective Physical Exam Physical Exam: General- No acute distress Head- atraumatic Eyes- PERRL, EOMI, ENT- oropharynx clear Neck- supple, no JVD Lungs- clear to auscultation Heart- regular rhythm; no murmur Abdomen- normal bowel sounds, soft, nontender Extremities- no calf tenderness Neuro- alert, oriented x 3; PERRL, EOMI; no facial palsy; no dysarthria Skin- warm & dry Results & Data Results & Data ([facility]) Vital Signs (Past 12 Hours) Vital Signs Temp Pulse Pulse Resp BP Pulse Ox O2 Del Method 11/10/21 07:44 36.7 C 42 L 17 108/61 96 Room Air 11/10/21 07:13 49 L 11/10/21 03:42 36.5 C 114 H 18 133/88 96 Room Air 11/09/21 22:15 36.7 C 51 L 18 148/73 H 98 Room Air
--- NOTE | 2021-11-10 10:36 | Cardiology Progress Note ---
Date of Service November 10, 2021 Assessment & Plan (1) Atrial tachycardia: (2) Dizziness: (3) Anemia: Plan Patient admitted for recurrent dizziness and headaches. At time of consult, she was having frequent bouts of atrial tach, but does not seem to be symptomatic in the exam room. Per cardiology notes from [place], similar findings several weeks ago when she was started on sotalol. Sotalol was held on admission to [facility] but due to recurrent atrial arrhythmias, we resumed sotalol 80 mg BID. 11/10/2021: No significant changes and patient is asymptomatic. Rhythm better control with occasional breakthrough atrial arrhythmias, appears atrial tachycardia, multifocal. Resting bradycardia precludes further upward titration of sotalol we will continue current plans and follow on telemetry as neurologic/rheumatologic evaluation proceeds We will supplement potassium to greater than 4. Check nocturnal oximetry given nocturnal episode Question episodes being driven by Requip used for restless leg Patient plans to establish cardiology follow-up with [facility] cardiology. Will discuss with EP as patient has borderline tachybradycardia syndrome. No indications for acute intervention Admission and Anticipated Discharge Date Admission Date: November 05, 2021 Subjective Patient seen and examined, chart, medications, telemetry reviewed. No complaints overnight. Temporal artery biopsy pending. Still having runs of atrial tachycardia and occasional bradycardia in nocturnal hours, asymptomatic. No dizziness or lightheadedness currently. No chest pains or discomfort. Physical Exam Constitutional: WD/WN, vitals as above well nourished; no acute distress Neck: trachea midline, no thyromegaly Respiratory: normal respiratory effort, lungs clear to auscultation Cardiovascular: Rate/Rhythm: regular rhythm and + tachycardic Heart Sounds: no murmur Vessels: no JVD Extremities: no edema Gastrointestinal (Abdomen): normal bowel sounds, soft, nontender, no hepatosplenomegaly Skin: no rashes, warm and dry Neurologic: PERRL, EOMI, accommodation nl, no face palsy, no dysarthria Psychiatric: A+Ox3, euthymic affect Results & Data ([facility]) Vital Signs (Past 12 Hours) Vital Signs Temp Pulse Pulse Resp BP Pulse Ox O2 Del Method 11/10/21 07:44 36.7 C 42 L 17 108/61 96 Room Air 11/10/21 07:13 49 L 11/10/21 03:42 36.5 C 114 H 18 133/88 96 Room Air Laboratory Results Laboratory Results - last 24 hr 11/10/21 11/10/21 07:19 07:19 Potassium 3.6 Creatinine 0.82 Est Cr Clr Drug Dosing 57.2 Est GFR ( Amer) 81.1 Est GFR (Non-Af Amer) 70.0
--- NOTE | 2021-11-10 11:20 | Anesthesiology Consultation ---
Date of Service November 10, 2021 Assessment & Plan Chart Review Chart Review: Acceptable Risk for Surgery and Patient NOT seen in Pre Admission Testing Consults Requested none ASA ASA4 Proposed Anesthesia Anesthesia Type: MAC History Surgery Operation Date: 11/10/21 11:30 Proposed Procedures p Temporal Artery Biopsy Right - Angelo Hansen, Height/Weight Height: 5 ft 7 in Weight: 61.1 kg Allergies Allergy/AdvReac Type Severity Reaction Status Date / Time Penicillins Allergy Mild Unknown Verified 11/10/21 11:08 Medications Home Medications Medication Instructions Recorded Confirmed Last Taken acetaminophen 500 mg tablet 1,000 mg PO BID 11/05/21 11/05/21 Unknown alendronate 70 mg tablet 70 mg PO WK 11/05/21 11/07/21 Unknown ascorbic acid (vitamin C) 500 mg 500 mg PO Q2D 11/05/21 11/05/21 Unknown tablet aspirin 81 mg tablet,delayed 81 mg PO DAILY 11/05/21 11/05/21 Unknown release biotin 10,000 mcg capsule 10,000 mcg PO DAILY 11/05/21 11/05/21 Unknown calcium carbonate 600 mg-vitamin 1 tab PO TID 11/05/21 11/05/21 Unknown D3 5 mcg (200 unit) tablet cyanocobalamin (vitamin B-12) 1,000 mcg PO DAILY 11/05/21 11/05/21 Unknown 1,000 mcg tablet ergocalciferol (vitamin D2) 1,250 1,250 mcg PO .[id number] 11/05/21 11/05/21 U nknown mcg (50,000 unit) capsule (Vitamin D2) escitalopram oxalate 20 mg tablet 20 mg PO DAILY 11/05/21 11/07/21 Unknown ferrous sulfate 325 mg (65 mg 325 mg PO BID 11/05/21 11/05/21 Unknown iron) tablet gabapentin 600 mg tablet 600 mg PO TID 11/05/21 11/07/21 Unknown levothyroxine 88 mcg tablet 88 mcg PO DAILYBB 11/05/21 11/05/21 Unknown linaclotide 145 mcg capsule 145 mcg PO DAILY 11/05/21 11/05/21 Unknown (Linzess) loratadine 10 mg tablet 10 mg PO DAILY PRN Allergy Symptoms 11/05/21 11/05/21 Unknown magnesium oxide 400 mg PO DAILY 11/05/21 11/05/21 Unknown quetiapine 100 mg tablet PO HS 11/05/21 Unknown ropinirole 0.5 mg tablet 0.5 mg PO HS 11/05/21 11/07/21 Unknown sotalol 80 mg tablet 80 mg PO BID 11/05/21 11/05/21 Unknown Active Medications Generic Name Dose Route Start Last Admin Trade Name Jamal PRN Reason Stop Dose Admin Acetaminophen 650 mg 11/05/21 21:17 11/06/21 08:35 Acetaminophen 325 Mg Tab PO 12/05/21 21:16 650 mg Q4H PRN Administration headac Aspirin 81 mg 11/06/21 09:00 11/10/21 09:41 Aspirin 81 Mg Ectab PO 12/06/21 08:59 81 mg DAILY SAFIA Administration Cyanocobalamin 1,000 mcg 11/06/21 09:00 11/10/21 09:41 Cyanocobalamin (B-12) 500 Mcg Tablet PO 12/06/21 08:59 1,000 mcg DAILY SAFIA Administration Diphenhydramine HCl 25 mg 11/09/21 01:06 11/09/21 01:11 Diphenhydramine Capsule 25 Mg Cap PO 12/09/21 01:05 25 mg HS PRN Administration Insomnia Escitalopram Oxalate 20 mg 11/06/21 09:00 11/10/21 09:41 Escitalopram Oxalate 20 Mg Tab PO 12/06/21 08:59 20 mg DAILY SAFIA Administration Ferrous Sulfate 325 mg 11/05/21 21:00 11/10/21 09:41 Ferrous Sulfate 325 Mg Tab PO 12/05/21 20:59 325 mg BID SAFIA Administration Gabapentin 600 mg 11/06/21 21:00 11/10/21 09:41 Gabapentin 600 Mg Tab PO 12/06/21 20:59 600 mg TID SAFIA Administration Protocol Heparin Sodium (Porcine) 5,000 units 11/05/21 21:00 11/10/21 09:43 Heparin Sod 5,000 Unit/0.5 Ml Vial SQ 12/05/21 20:59 Not Given Q12 SAFIA Levothyroxine Sodium 88 mcg 11/06/21 06:30 11/10/21 06:11 Levothyroxine Sodium 88 Mcg Tablet PO 12/06/21 06:29 88 mcg DAILYBB SAFIA Administration Linaclotide 145 mcg 11/06/21 09:00 11/09/21 08:05 Linaclotide 145 Mcg Capsule PO 12/06/21 08:59 145 mcg DAILY SAFIA Administration Magnesium Oxide 400 mg 11/06/21 09:00 11/10/21 09:41 Magnesium Oxide 400 Mg Tab PO 12/06/21 08:59 400 mg DAILY SAFIA Administration Pantoprazole Sodium 40 mg 11/07/21 09:00 11/10/21 09:41 Pantoprazole 40 Mg Tab PO 12/07/21 08:59 40 mg QAM SAFIA Administration Prednisone 60 mg 11/07/21 09:00 11/10/21 09:42 Prednisone 20 Mg Tab PO 12/07/21 08:59 60 mg DAILY SAFIA Administration Quetiapine Fumarate 100 mg 11/05/21 21:00 11/06/21 21:12 Quetiapine Fumarate 200 Mg Tab PO 12/05/21 20:59 100 mg HS SAFIA Administration Ropinirole HCl 0.25 mg 11/05/21 21:00 11/09/21 20:07 Ropinirole Hcl 0.25 Mg Tablet PO 12/05/21 20:59 0.25 mg HS SAFIA Administration Sotalol HCl 80 mg 11/08/21 21:00 11/10/21 09:42 Sotalol Hcl 80 Mg Tab PO 12/08/21 20:59 80 mg BID SAFIA Administration NPO Date Last Intake of Fluids: 11/09/21 Time Last Intake of Fluids: 21:00 Last Intake of Fluids Comment: sip of water w/meds at 0942 Date Last Intake of Solids: 11/09/21 Time Last Intake of Solids: 18:00 Past Medical History Medical History Anemia Atrial tachycardia Blurry vision, bilateral Diet-controlled diabetes mellitus Dizziness H/O supraventricular tachycardia HTN (hypertension) Hypothyroidism Exercise / Class Metabolic Activity III < 4 Walking/Shop/Light housework Past Surgical History Surgical History History of appendectomy History of gastric bypass History of hysterectomy History of knee replacement procedure of left knee History of knee replacement procedure of right knee Hx laparoscopic cholecystectomy S/p bilateral carpal tunnel release Past Anesthesia History No Hx of Anesthesia Complications and No Family Hx of Anesthesia Complications History of PONV No Hx of PONV and No Hx of Motion Sickness Social History Smoking Status: Never smoker Hx Alcohol Use: No Hx Substance Use: No Physical Exam Vital Signs Last Vital Signs Temp 36.7 C 11/10/21 10:51 Pulse 49 L 11/10/21 10:51 Resp 16 11/10/21 10:51 BP 102/66 11/10/21 10:51 Pulse Ox 95 11/10/21 10:51 O2 Del Method 11/10/21 10:51 Testing Laboratory Results 11/07/21 07:25 11/10/21 07:19 PT 10.9 Seconds (9.0-12.0) 11/05/21 14:09 INR 1.0 (0.9-1.1) 11/05/21 14:09 APTT 27.6 Seconds (21.0-31.0) 11/05/21 14:09 Hemoglobin A1c 6.0 % (4.5-5.6) H 11/05/21 14:09
--- NOTE | 2021-11-10 11:42 | Neurology Progress Note ---
Date of Service November 10, 2021 Assessment & Plan (1) Headache: Plan: 1. 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 sed rate 80 today 79 3. headache had been daily x 2 weeks - not positional 4. MRI brain - no acute findings 5. TTE- no ASD 6. start prednisone 60 mg daily 7. consult general surgery for temporal artery biopsy 8. will need ophthalmology referral we will sign off for now will chart check for biopsy results but if positive will need referral to rheumatology (2) Dizziness: (3) Blurry vision, bilateral: Plan: 1. will need ophthalmology referral Admission and Anticipated Discharge Date Admission Date: November 05, 2021 Karol Garcia is a 76 year old female with PMH- PSVT, PAF, HTN, DM, hypothyroid who presented to the [facility] ED 11/05/21 with dizziness, fatigue, headache, blurry vision, labile heart rate and blood pressure. She has had these symptoms for 2 weeks now. [facility] for the same complaints. She was seen by cardio, GI and hematology there for her arrhythmia and anemia. She found to have PAT and her topol was discontinued and started on sotalol. Also her hemaglobin dropped to 8 from 10 and was seen by GI and hem onc and started on oral iron therapy, no endoscopies were done. She was discharged on 11/02 but states she did not feel any improvement while at the hospital or after discharge. She then came to [facility] for further evaluation. Her HR ranges between 60s to 140s. She was previously very active but feels fatigued and dyspneic for the past 2 weeks since having these issues. Also feels dizzy when she is ambulating or doing something and goes away with resting for a while but denies any orthostatic symptoms. No vertigo. Also has occipital and frontal headache, constant, with no exacerbation or relieving factors- takes tylenol as needed which does not usually help much. Also has bilateral blurry vision but no diplopia. Uses bifocal lens last changed a year ago. no history of migraines. She is sleeping when entering the room. She started having headaches and blurred vision about 2 weeks ago. She was seen at the [facility] and they felt it was related to decrease in caffeine intake. the headaches are pressure not pounding and her temples are tender to touch are not positional. She can tolerated steroids. non smoker, no etOH use, moderate caffeine use. She does feel better today her headaches are much improved on steroids. Her hgb and hct are still low. She had been out of bed to the bathroom. denies CP, SOB, abdominal pain, swallowing issues, falls, syncope, N, V. Physical Exam Physical Exam: Physical Exam: Constitutional: appearance nourished, healthy and normal Ears, Nose, Mouth and Throat: mucous membranes moist, no injection and skin normal, eyes normal, tenderness bilaterally temples with touch Cardiovascular: irregular Respiratory: clear to auscultation (CTA) and no rales, ronchi or wheeze Musculoskeletal: no peripheral edema and good distal pulses Skin: no stigmata of neurocutaneous disease noted and normal and intact Eyes: extraocular muscles intact (EOMI) and pupils equal, round and reactive to light (PERRL) NEUROLOGIC EXAMINATION: Mental status: Alert and interactive Oriented to full date and location Oriented to person Speech fluent with no evidence of aphasia Cranial Nerves smile symmetric, eye brow raise right does no lift symmetrically Reflexes: Deep tendon reflexes were decrease bilaterally LE Sensory: intact to light cool touch, vibration, GT proprioception intact Coordination: finger to nose Gait/Stance: Posture lying in bed Motor: Negative for pronator drift of out stretched arms with eyes closed. 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
[2021-11-10] MEDS ORDERED: MIDAZOLAM HCL 1 MG/ML 2ML VIAL ONE (11:43)
[2021-11-10] MEDS ORDERED: CLINDAMYCIN 600 MG/D5W 50 ML BAG IV ONE (11:44)
[2021-11-10] MEDS ORDERED: BUPIVACAINE 0.5 % 5 MG/1 ML MPF 30ML VIAL ONE (11:46)
[2021-11-10] MEDS ORDERED: EPINEPHrine INJ 1 MG/ML AMP ONE (11:46)
--- NOTE | 2021-11-10 11:48 | History & Physical Bridge Note ---
Date of Service November 10, 2021 History & Physical Bridge Note I have examined the patient, reviewed the History & Physical and in the interval since the performance of the History & Physical I have noted the following changes of clinical significance: no changes noted . headaches better since starting steroid. systemic disease so biopsy of one side should suffice. discussed options/risks. will proceed with right temporal artery biopsy rather than bilateral. patient agrees with plan.
--- NOTE | 2021-11-10 12:32 | Operative Report ---
PG Post Operative Report Pre & Post Diagnosis Operation Date: 11/10/21 11:30 Pre-Op Diagnosis: (1) Headache: (2) Dizziness: (3) Blurry vision, bilateral: Post-Op Diagnosis: (1) Headache: (2) Dizziness: (3) Blurry vision, bilateral: I identified the patient and participated in the time-out.: Yes Procedure Operation Date: 11/10/21 11:30 Actual Procedures p Temporal Artery Biopsy Right(Right) - Angelo Hansen DO Surgeon Angelo Hansen DO Planning Consultant rogelio Nixon Estimated Blood Loss 3 Findings Consistent with Post-Op Diagnosis Specimens right temporal artery section Description of Procedure After informed consent was obtained the patient was taken to the operating room and placed in supine position. IV sedation was administered by anesthesia and titrated to effect. After adequate sedation the right temporal region of the face was sterilely prepped and draped in usual fashion. After identifying the artery with Doppler we created a skin wheal directly over it with Marcaine. I then made a horizontal incision over the course of the artery. Cautery was used to come down through the soft tissue. We continued using the Doppler to localize the artery itself. I came around the distal portion of the artery and tied it off with 3-0 silk tie as well as a Hemoclip. In similar fashion I gained proximal control and again tied it with 3-0 silk as well as 2 hemoclips. I then removed about a 1 inch section using tenotomy scissors. It was passed off to be sent to pathology. Once it was removed there was no further pulse on Doppler verifying that we did in fact remove the artery. There was adequate hemostasis. I irrigated the wound and closed it in 2 layers using 3-0 Monocryl for deep layers and 4-0 Monocryl for skin. A sterile dressing was applied. The patient was awakened and transferred recovery in stable condition. My physician content assistant was present for the entire case was instrumental in retraction throughout my dissection wound closure and dressing placement. I attest to the content of the Intraoperative Record and any orders documented therein. Any exceptions are noted below.
[2021-11-10] MEDS ORDERED: NALOXONE HCL 0.4 MG/1 ML VIAL/CARP IV PRN (12:47)
[2021-11-10] MEDS ORDERED: ePHEDrine sulfate 50 MG/ML AMP IV PRN (12:47)
[2021-11-10] MEDS ORDERED: ATROPINE SULFATE 0.1 MG/ML 10ML SYR IV PRN (12:47)
[2021-11-10] MEDS ORDERED: PROMETHAZINE HCL 12.5 MG in SODIUM CHLORIDE 0.9% 50 ML IV PRN (12:47)
[2021-11-10] MEDS ORDERED: fentaNYL citrate 100 MCG/2 ML VIAL IV PRN (12:47)
[2021-11-10] MEDS ORDERED: FLUMAZENIL 0.1 MG/1 ML 10 ML VIAL IV PRN (12:47)
[2021-11-10] MEDS ORDERED: ONDANSETRON INJ 2 MG/ML 2 ML VIAL IV PRN (12:47)
--- NOTE | 2021-11-10 13:05 | Anesthesiology Progress Note ---
Date of Service November 10, 2021 Anesthesia Post Procedure Vital Signs Vital Signs: Temp Pulse Pulse Pulse Pulse Resp BP 11/10/21 13:00 36.5 C 46 L 20 11/10/21 12:50 47 L 14 11/10/21 12:43 36.4 C L 41 L 16 11/10/21 10:51 36.7 C 49 L 16 102/66 11/10/21 07:44 36.7 C 42 L 17 108/61 11/10/21 07:13 49 L 11/10/21 03:42 36.5 C 114 H 18 133/88 11/09/21 22:15 36.7 C 51 L 18 148/73 H 11/09/21 18:52 36.7 C 58 L 18 128/68 11/09/21 16:13 36.7 C 68 16 115/68 BP Pulse Ox O2 Del Method 11/10/21 13:00 103/54 L 95 Room Air 11/10/21 12:50 105/50 L 97 Room Air 11/10/21 12:43 113/62 98 Room Air 11/10/21 10:51 95 Room Air 11/10/21 07:44 96 Room Air 11/10/21 07:13 11/10/21 03:42 96 Room Air 11/09/21 22:15 98 Room Air 11/09/21 18:52 96 Room Air 11/09/21 16:13 96 Room Air Transfer of Care Handoff Completed per policy Notes Mental Status: alert / awake / arousable Patient Amnestic to Procedure: Yes Nausea / Vomiting: adequately controlled Pain: adequately controlled Airway Patency, RR, SpO2: stable & adequate BP & HR: stable & adequate Hydration State: stable & adequate Anesthetic Complications: no major complications apparent
[2021-11-10] MEDS ORDERED: oxyCODONE HCL IR 5 MG TAB (IMMEDIATE RELEASE) PO PRN (13:21)
[2021-11-10] MEDS: LINACLOTIDE 145 MCG CAPSULE PO SCH (14:19)
[2021-11-10] MEDS: rOPINIRole HCL 0.25 MG TABLET PO SCH (21:05)
[2021-11-10] MEDS: POTASSIUM CHLORIDE CRTAB 20 MEQ TABCR PO SCH (21:06)
[2021-11-11] MEDS ORDERED: CLINDAMYCIN/D5W 600 MG/50 ML BAG IV SCH (06:00)
[2021-11-11] MEDS: LEVOTHYROXINE SODIUM 88 MCG TABLET PO SCH (06:05)
[2021-11-11 07:37] LABS: Hematocrit (blood only) 31.7 % (34.1-44.9); Hemoglobin 9.7 g/dl (12.0-16.0); Mean Corpuscular Hemoglobin 27.1 pg (25.0-34.0); Mean Corpuscular Hgb Conc 30.6 g/dL (32.0-36.0); Mean Corpuscular Volume 88.5 fL (80.0-100.0); Nucleated RBC # (auto) 0.02 K/uL (0-0); Nucleated RBC % (auto) 0.2 %; Platelet Count 481 K/uL (130-400); RDW Coefficient of Variation 15.2 % (11.5-14.5); RDW Standard Deviation 48.3 fL (36.4-46.3); Red Blood Count 3.58 M/uL (3.93-5.22); White Blood Count 10.26 K/ul (4.8-10.8)
[2021-11-11 07:59] LABS: BUN Creatinine Ratio 21.6 (10-20); Calcium 7.9 mg/dl (8.5-10.1); Creatinine Clr Calc Pharmacy 48.3 ml/min; Est GFR (African American) 66.2 ml/min; Est GFR (Non-African American) 57.1 ml/min; Potassium 3.7 mmol/L (3.5-5.1)
[2021-11-11] MEDS: LINACLOTIDE 145 MCG CAPSULE PO SCH (08:48)
[2021-11-11] MEDS: SOTALOL HCL 80 MG TAB PO SCH (08:48)
[2021-11-11] MEDS: FERROUS SULFATE 325 MG TAB PO SCH (08:48)
[2021-11-11] MEDS: PANTOprazole 40 MG TAB PO SCH (08:48)
[2021-11-11] MEDS: CYANOCOBALAMIN (B-12) 500 MCG TABLET PO SCH (08:48)
[2021-11-11] MEDS: ASPIRIN 81 MG ECTAB PO SCH (08:48)
[2021-11-11] MEDS: POTASSIUM CHLORIDE CRTAB 20 MEQ TABCR PO SCH (08:48)
[2021-11-11] MEDS: MAGNESIUM OXIDE 400 MG TAB PO SCH (08:48)
[2021-11-11] MEDS: predniSONE 20 MG TAB PO SCH (08:48)
[2021-11-11] MEDS: ESCITALOPRAM OXALATE 20 MG TAB PO SCH (08:48)
[2021-11-11] MEDS: GABAPENTIN 600 MG TAB PO SCH ×2 (08:48→13:15)
--- NOTE | 2021-11-11 08:56 | Surgery Progress Note ---
Date of Service November 11, 2021 Assessment & Plan (1) Headache: Plan: POD#1 right temporal artery biopsy Pt doing well. no complaints incision c/d/i some R eyebrow droop, expect will improve over the next month or so okay for dispo from our standpoint, f/u in clinic withi Dr. Hansen in 1-2 weeks Admission and Anticipated Discharge Date Admission Date: November 05, 2021 Subjective Patient is feeling well. Offers no complaints. Reports bilateral sensation is the same on either side of her face. Physical Exam Physical Exam: awake/alert, no distress ENMT: R sided temporal incision healing well with skin glue over top. some R sided eye brow droop, but is able to move it Results & Data ([facility]) Vital Signs (Past 12 Hours) Vital Signs Temp Pulse Pulse Pulse Resp BP Pulse Ox 11/11/21 07:19 36.5 C 47 L 16 97 11/11/21 07:15 58 L 11/11/21 04:01 36.5 C 56 L 16 98/62 L 95 11/11/21 02:04 47 L 11/11/21 00:12 40 L 11/10/21 21:57 64 11/10/21 22:51 36.4 C L 52 L 18 116/72 94 11/10/21 22:15 43 L Pulse Ox O2 Del Method O2 Del Method 11/11/21 07:19 Room Air 11/11/21 07:15 11/11/21 04:01 Room Air 11/11/21 02:04 96 Room Air 11/11/21 00:12 11/10/21 21:57 94 Room Air 11/10/21 22:51 Room Air 11/10/21 22:15 98 Room Air PG Care Time/CCT Total # of Minutes Spent Total Time Spent with Patient: Total time spent is greater than 50% in coordination of care (as documented) at patient's floor/unit and/or counseling patient: Coding Level of Care Code None Diagnoses Headache R51.9
--- NOTE | 2021-11-11 10:59 | Cardiology Progress Note ---
Date of Service November 11, 2021 Assessment & Plan (1) Atrial tachycardia: (2) Dizziness: (3) Anemia: Plan Patient admitted for recurrent dizziness and headaches. At time of consult, she was having frequent bouts of atrial tach, but does not seem to be symptomatic in the exam room. Per cardiology notes from [place], similar findings several weeks ago when she was started on sotalol. Sotalol was held on admission to [facility] but due to recurrent atrial arrhythmias, we resumed sotalol 80 mg BID. 11/10/2021: No significant changes and patient is asymptomatic. Rhythm better control with occasional breakthrough atrial arrhythmias, appears atrial tachycardia, multifocal. Resting bradycardia precludes further upward titration of sotalol we will continue current plans and follow on telemetry as neurologic/rheumatologic evaluation proceeds We will supplement potassium to greater than 4. Check nocturnal oximetry given nocturnal episode Question episodes being driven by Requip used for restless leg 11/11/2021 Patient stable from cardiac standpoint. Rhythm issues less pronounced. Would continue potassium supplement at 20meq p.o. daily as well as magnesium supplement on discharge Recommend discussing stopping Requip with patient if no significant improvement with this medication would discontinue Patient plans to establish cardiology follow-up with [facility] cardiology. We will arrange for appointment [facility] Admission and Anticipated Discharge Date Admission Date: November 05, 2021 Subjective Patient seen and examined, chart, medications, telemetry reviewed. Rhythm predominantly sinus and sinus bradycardia with one brief run of atrial tachycardia no sustained episodes. Tolerated surgery well without difficulty. No cardiac complaints. No fevers chills Physical Exam Constitutional: WD/WN, vitals as above well nourished; no acute distress Neck: trachea midline, no thyromegaly Respiratory: normal respiratory effort, lungs clear to auscultation Cardiovascular: Rate/Rhythm: regular rhythm and + tachycardic Heart Sounds: no murmur Vessels: no JVD Extremities: no edema Gastrointestinal (Abdomen): normal bowel sounds, soft, nontender, no hepatosplenomegaly Skin: no rashes, warm and dry Neurologic: PERRL, EOMI, accommodation nl, no face palsy, no dysarthria Psychiatric: A+Ox3, euthymic affect Results & Data ([facility]) Vital Signs (Past 12 Hours) Vital Signs Temp Pulse Pulse Pulse Resp BP Pulse Ox 11/11/21 07:19 36.5 C 47 L 16 97 11/11/21 07:15 58 L 11/11/21 04:01 36.5 C 56 L 16 98/62 L 95 11/11/21 02:04 47 L 11/11/21 00:12 40 L Pulse Ox O2 Del Method O2 Del Method 11/11/21 07:19 Room Air 11/11/21 07:15 11/11/21 04:01 Room Air 11/11/21 02:04 96 Room Air 11/11/21 00:12 Laboratory Results Laboratory Results - last 24 hr 11/10/21 11/11/21 11/11/21 12:45 07:28 07:28 WBC 10.26 RBC 3.58 L Hgb 9.7 L Hct 31.7 L MCV 88.5 MCH 27.1 MCHC 30.6 L RDW Std Deviation 48.3 H RDW Coeff of Musa 15.2 H Plt Count 481 H MPV 9.0 L Absolute Nucleated RBC 0.02 H Nucleated RBC % (auto) 0.2 Sodium 140 Potassium 3.7 Chloride 109 H Carbon Dioxide 28 Anion Gap 3 BUN 21 Creatinine 0.97 Est Cr Clr Drug Dosing 48.3 Est GFR ( Amer) 66.2 Est GFR (Non-Af Amer) 57.1 BUN/Creatinine Ratio 21.6 H Glucose 121 H POC Glucose 119 H Calcium 7.9 L
--- NOTE | 2021-11-11 11:38 | Hospitalist Progress Note ---
Date of Service November 11, 2021 Assessment & Plan (1) Atrial tachycardia: (2) Headache: (3) Dizziness: (4) Blurry vision, bilateral: (5) Hypertension: (6) Anemia: Plan 76 year old female presenting to the ED with persistent dizziness, headache, fatigue, headache, and labile HR/BP for 2 weeks and [facility] for the same without improvement in symptoms. Atrial tachycardia She was started on sotalol during last admission in [place] [facility] with preserved LVEF, no significant valvular disease. Cardiology consulted Continue Sotalol 80mg BID Metoprolol discontinued Continued to monitor QT/QTc closely as she is on other meds that could prolong QT interval. Zofran and seroquel discontinued. Continue monitor EKG for QT interval changes Patient would like to follow-up with [facility] cardiology as outpatient Continue sotalol 80 mg twice daily on discharge Also continue potassium and magnesium supplement Per cardiology, also recommend to consider discontinuing requip Headache associated with B/L Blurry vision Possible related to Temporal arteritis MRI head showed no acute finding Elevated ESR 80 on admission, Most recent ESR 79 Neuro consulted - recommended to start on Prednisone 60mg daily Surgery consult for temporal artery biopsy Patient underwent temporal artery biopsy on November 10, per pathology- No significant inflammation identified (negative for arteritis). However patient has been on prednisone for several days prior to biopsy Pt will need Rheumatology and ophthalmology outpatient follow up Neurology recommends to continue prednisone 60mg daily and follow up with rheumatology - that they will decide when to taper it Anemia Hgb 9.2 Pt is schedule with GI in [place] on 12/20 for possible scope Continue Iron supplement Continue monitor CBC Insomnia Seroquel was discontinued She cannot tolerate ambien Ativan seems to help a little, try 0.5mg prn hs Hypothyroidism Continue levothyroxine TSH wnl HTN BP stable DM-2 Most recent hemoglobin A1c 6 Not on any diabetes med outpaient diet controlled per patient. Continue monitor DVT ppx- sc heparin Full code disposition Plan to Vt home Admission and Anticipated Discharge Date Admission Date: November 05, 2021 Subjective Pt was seen and examined for follow up of dizziness, blurry vision, headache, fatigue Concern for temporal arteritis Patient is sitting up in bed with no acute distress Status post temporal artery biopsy yesterday Tolerated procedure well, overall feels well Denies any fevers, chills, chest pain, palpitation, headache dizziness or shortness of breath Plan to discharge today, and follow-up with outpatient providers Review of Systems Review of Systems: All systems reviewed & are unremarkable except as noted in Subjective Physical Exam Physical Exam: General-elderly female, no acute distress Head- atraumatic, small incision over right quaker, no erythema or edema or drainage Eyes- PERRL, EOMI, ENT- oropharynx clear Neck- supple, no JVD Lungs- clear to auscultation Heart- regular rhythm; no murmur Abdomen- normal bowel sounds, soft, nontender Extremities- no calf tenderness Neuro- alert, oriented x 3; PERRL, EOMI; no facial palsy; no dysarthria, moves extremities Skin- warm & dry Results & Data Results & Data ([facility]) Vital Signs (Past 12 Hours) Vital Signs Temp Pulse Pulse Pulse Resp BP Pulse Ox 11/11/21 11:19 36.6 C 67 18 97/54 L 95 11/11/21 07:19 36.5 C 47 L 16 97 11/11/21 07:15 58 L 11/11/21 04:01 36.5 C 56 L 16 98/62 L 95 11/11/21 02:04 47 L 11/11/21 00:12 40 L Pulse Ox O2 Del Method O2 Del Method 11/11/21 11:19 Room Air 11/11/21 07:19 Room Air 11/11/21 07:15 11/11/21 04:01 Room Air 11/11/21 02:04 96 Room Air 11/11/21 00:12 Laboratory Results 11/11/21 11/11/21 11/10/21 Range/Units 07:28 07:28 12:45 WBC 10.26 (4.8-10.8) K/ul RBC 3.58 L (3.93-5.22) M/uL Hgb 9.7 L (12.0-16.0) g/dl Hct 31.7 L (34.1-44.9) % MCV 88.5 (80.0-100.0) fL MCH 27.1 (25.0-34.0) pg MCHC 30.6 L (32.0-36.0) g/dL RDW Std Deviation 48.3 H (36.4-46.3) fL RDW Coeff of Musa 15.2 H (11.5-14.5) % Plt Count 481 H (130-400) K/uL MPV 9.0 L (9.4-12.3) fL Absolute Nucleated RBC 0.02 H (0-0) K/uL Nucleated RBC % (auto) 0.2 % Sodium 140 (136-145) mmol/L Potassium 3.7 (3.5-5.1) mmol/L Chloride 109 H (98-107) mmol/L Carbon Dioxide 28 (21-32) mmol/L Anion Gap 3 (3-11) BUN 21 (6-23) mg/dl Creatinine 0.97 (0.6-1.2) mg/dl Est Cr Clr Drug Dosing 48.3 ml/min Est GFR ( Amer) 66.2 ml/min Est GFR (Non-Af Amer) 57.1 ml/min BUN/Creatinine Ratio 21.6 H (10-20) Glucose 121 H (70-99(Fasting)) mg/dl POC Glucose 119 H (70-99) mg/dl Calcium 7.9 L (8.5-10.1) mg/dl Medications Administered Current Inpatient Medications Acetaminophen (Acetaminophen 325 Mg Tab) 650 mg PO Q4H PRN PRN Reason: headac Stop: 12/05/21 21:16 Last Admin: 11/06/21 08:35 Dose: 650 mg Aspirin (Aspirin 81 Mg Ectab) 81 mg PO DAILY SAFIA Stop: 12/06/21 08:59 Last Admin: 11/11/21 08:48 Dose: 81 mg Cyanocobalamin (Cyanocobalamin (B-12) 500 Mcg Tablet) 1,000 mcg PO DAILY SAFIA Stop: 12/06/21 08:59 Last Admin: 11/11/21 08:48 Dose: 1,000 mcg Diphenhydramine HCl (Diphenhydramine Capsule 25 Mg Cap) 25 mg PO HS PRN PRN Reason: Insomnia Stop: 12/09/21 01:05 Last Admin: 11/09/21 01:11 Dose: 25 mg Escitalopram Oxalate (Escitalopram Oxalate 20 Mg Tab) 20 mg PO DAILY SAFIA Stop: 12/06/21 08:59 Last Admin: 11/11/21 08:48 Dose: 20 mg Ferrous Sulfate (Ferrous Sulfate 325 Mg Tab) 325 mg PO BID SAFIA Stop: 12/05/21 20:59 Last Admin: 11/11/21 08:48 Dose: 325 mg Gabapentin (Gabapentin 600 Mg Tab) 600 mg PO TID [facility]; Protocol Stop: 12/06/21 20:59 Last Admin: 11/11/21 08:48 Dose: 600 mg Heparin Sodium (Porcine) (Heparin Sod 5,000 Unit/0.5 Ml Vial) 5,000 units SQ Q12 SAIFA Stop: 12/05/21 20:59 Last Admin: 11/10/21 21:06 Dose: 5,000 units Levothyroxine Sodium (Levothyroxine Sodium 88 Mcg Tablet) 88 mcg PO DAILYBB SAFIA Stop: 12/06/21 06:29 Last Admin: 11/11/21 06:05 Dose: 88 mcg Linaclotide (Linaclotide 145 Mcg Capsule) 145 mcg PO DAILY [facility] Stop: 12/06/21 08:59 Last Admin: 11/11/21 08:48 Dose: 145 mcg Lorazepam (Lorazepam 0.5 Mg Tab) 0.5 mg PO HS PRN PRN Reason: Insomnia Stop: 12/09/21 11:02 Magnesium Oxide (Magnesium Oxide 400 Mg Tab) 400 mg PO DAILY [facility] Stop: 12/06/21 08:59 Last Admin: 11/11/21 08:48 Dose: 400 mg Metoprolol Tartrate (Metoprolol Tartrate 1 Mg/Ml Vial) 5 mg IV Q5M PRN PRN Reason: for sustained HR >120 Stop: 12/05/21 21:16 Oxycodone HCl (Oxycodone Hcl Ir 5 Mg Tab (Immediate Release)) 5 mg PO Q4H PRN PRN Reason: Pain Stop: 11/24/21 13:20 Pantoprazole Sodium (Pantoprazole 40 Mg Tab) 40 mg PO QAM [facility] Stop: 12/07/21 08:59 Last Admin: 11/11/21 08:48 Dose: 40 mg Potassium Chloride (Potassium Chloride Crtab 20 Meq Tabcr) 20 meq PO BID [facility]IA Stop: 12/10/21 20:59 Last Admin: 11/11/21 08:48 Dose: 20 meq Prednisone (Prednisone 20 Mg Tab) 60 mg PO DAILY [facility] Stop: 12/07/21 08:59 Last Admin: 11/11/21 08:48 Dose: 60 mg Quetiapine Fumarate (Quetiapine Fumarate 200 Mg Tab) 100 mg PO HS [facility] Stop: 12/05/21 20:59 Last Admin: 11/06/21 21:12 Dose: 100 mg Ropinirole HCl (Ropinirole Hcl 0.25 Mg Tablet) 0.25 mg PO [facility] Stop: 12/05/21 20:59 Last Admin: 11/10/21 21:05 Dose: 0.25 mg Sotalol HCl (Sotalol Hcl 80 Mg Tab) 80 mg PO BID [facility] Stop: 12/08/21 20:59 Last Admin: 11/11/21 08:48 Dose: 80 mg
--- NOTE | 2021-11-11 12:28 | Discharge Summary ---
Date of Service November 11, 2021 Admission HPI Per Admitting Provider 76 year old female with h/o PSVT, PAF, HTN, DM, hypothyroid who presented to the ED with dizziness, fatigue, headache, blurry vision, labile heart rate and blood pressure. She has had these symptoms for 2 weeks now. She was admitted at [facility] from 10/28-11/02 for the same complaints. She was seen by cardio, GI and hematology there for her arrhythmia and anemia. She found to have PAT and her toprol was discontinued and started on sotalol. Also her Hb dropped to 8 from 10 and was seen by GI and hemonc and started on oral iron therapy, no endoscopies were done. She was discharged on 11/02 but states she did not feel any improvement while at the hospital or after discharge, and hence came to our hospital for further evaluation. States her HR ranges between 60s to 140s. She was previously very active but feels fatigued and dyspneic for the past 2 weeks since having these issues. Also feels dizzy when she is ambulating or doing something and goes away with resting for a while but denies any orthostatic symptoms. No vertigo. Also has occipital and frontal headache, constant, with no exacerbation or relieving factors- takes tylenol as needed which does not usually help much. Also has bilateral blurry vision but no diplopia. Uses bifocal lens last changed a year ago. No hearing loss or tinnitus. No numbness or tingling. No numbness, weakness tingling or other neurological symptoms. No h/o migraine or prior headaches. Denies any orthopnea or PND. States has h/o PAF during perioperative period in 2019 and was on anticoagulation for a while but then taken off. No h/o CAD, CVA, VTE, lung disease. Never smoker. No recent viral or flu like illness. Admission Exam Per Admitting Provider General: Sitting comfortably in bed, not in distress, on room air HEENT: EOMI, VIPIN, MMM. 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 Atrial tachycardia Discharge Exam General-elderly female, no acute distress Head- atraumatic, small incision over right church, no erythema or edema or drainage Eyes- PERRL, EOMI, ENT- oropharynx clear Neck- supple, no JVD Lungs- clear to auscultation Heart- regular rhythm; no murmur Abdomen- normal bowel sounds, soft, nontender Extremities- no calf tenderness Neuro- alert, oriented x 3; PERRL, EOMI; no facial palsy; no dysarthria, moves extremities Skin- warm & dry Discharge Data Allergies Allergy/AdvReac Type Severity Reaction Status Date / Time Penicillins Allergy Mild Unknown Verified 11/10/21 11:08 Consultations 11/05/21 16:55 ED Decision to Admit Stat 11/05/21 18:15 Consult Cardiology Routine Consult Neurology Routine 11/06/21 17:15 Consult General Surgery Routine Procedures Performed Operation Date: 11/10/21 11:30 Actual Procedures p Temporal Artery Biopsy Right(Right) - Angelo Hansen, Ordered Studies 11/05/21 15:41 CT head/brain wo con Stat FINDINGS: Extraaxial space: There is no evidence for subdural hematoma. There are no extra-axial fluid collections. Ventricles and cisterns: The ventricles are mildly dilated bilaterally. There is no evidence for midline shift or mass effect. Parenchyma: There is no subarachnoid or intraparenchymal hemorrhage. There is no evidence for an acute infarct or cerebral edema. . There is mild cerebral cortical atrophy and decreased attenuation in the periventricular white matter representing remote small vessel disease. There are no gross mass lesions. Osseous structures: There is no evidence for an acute fracture. The visualized paranasal sinuses are clear. The mastoid air cells are clear bilaterally. Soft tissues: There is no evidence for focal soft tissue swelling. IMPRESSION: 1. No acute intracerebral pathology. 2. Mild cerebral cortical atrophy and remote small vessel disease. 11/05/21 18:15 MRI Brain [MR brain wo/w con] Routine FINDINGS: There is no mass, hematoma, midline shift, or acute infarct. The paranasal sinuses are clear. The mastoid air cells are clear. The ventricles and sulci demonstrate mild age-related involutional changes. A few punctate scattered foci of T2 hyperintensity seen within the periventricular and subcortical white matter are nonspecific but suggestive of mild microvascular ischemic changes. The major vascular flow voids at the skull base are well- maintained. Evidence for bilateral lens replacement. IMPRESSION: No acute intracranial abnormality. A few punctate scattered foci of T2 hyperintensity seen within the periventricular and subcortical white matter are nonspecific but favor microvascular ischemic change. Hospital Course (1) Atrial tachycardia: (2) Headache: (3) Dizziness: (4) Blurry vision, bilateral: (5) Hypertension: (6) Anemia: Plan 76 year old female presenting to the ED with persistent dizziness, headache, fatigue, headache, and labile HR/BP for 2 weeks and had inpatient evaluation at [facility] 10/28-11/02 for the same without improvement in symptoms. Atrial tachycardia She was started on sotalol during last admission in [place] [facility] with preserved LVEF, no significant valvular disease. Cardiology consulted Continue Sotalol 80mg BID Metoprolol discontinued Continued to monitor QT/QTc closely as she is on other meds that could prolong QT interval. Zofran and seroquel discontinued. Continue monitor EKG for QT interval changes Patient would like to follow-[facility] with [facility] cardiology as outpatient Continue sotalol 80 mg twice daily on discharge Also continue potassium and magnesium supplement Per cardiology, also recommend to consider discontinuing requip Headache associated with B/L Blurry vision Possible related to Temporal arteritis MRI head showed no acute finding Elevated ESR 80 on admission, Most recent ESR 79 Neuro consulted - recommended to start on Prednisone 60mg daily Surgery consult for temporal artery biopsy Patient underwent temporal artery biopsy on November 10, per pathology- No significant inflammation identified (negative for arteritis). However patient has been on prednisone for several days prior to biopsy Pt will need Rheumatology and ophthalmology outpatient follow up Neurology recommends to continue prednisone 60mg daily and follow up with rheumatology - that they will decide when to taper it Anemia Hgb 9.2 Pt is schedule with GI in [place] on 12/20 for possible scope Continue Iron supplement Continue monitor CBC Insomnia Seroquel was discontinued She cannot tolerate ambien Ativan seems to help a little, try 0.5mg prn hs Hypothyroidism Continue levothyroxine TSH wnl HTN BP stable DM-2 Most recent hemoglobin A1c 6 Not on any diabetes med outpaient diet controlled per patient. 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 Take prednisone 60 mg daily, until you see economics department chair. Take pantoprazole, to protect your stomach, while taking prednisone. You will need to see economics department chair and health systems analyst. Take sotalol 80 mg twice a day. You will need to follow-up with sr. [employer] system administrator. You will be contacted about the appointment. Take potassium and magnesium supplements. Stop taking Seroquel. Pending Studies at Discharge: No Stand-Alone Forms: My [facility] [employer], Smoking Cessation Medications and DC Order Prescriptions: New pantoprazole 40 mg Tablet,Delayed Release (Dr/Ec) 40 mg PO QAM Qty: 20 0RF prednisone 20 mg Tablet 60 mg PO DAILY Qty: 10 0RF potassium chloride 20 mEq Tablet,Er Particles/Crystals 20 meq PO DAILY Qty: 14 0RF Continued acetaminophen [Tylenol Ex Str Rapid Release] 500 mg Tablet 1,000 mg PO BID alendronate 70 mg tablet 70 mg PO WK Rx Instructions: TAKE THIS MED EVERY WEDNESDAY ascorbic acid (vitamin C) 500 mg Tablet 500 mg PO Q2D aspirin [Aspir-Low] 81 mg Tablet,Delayed Release (Dr/Ec) 81 mg PO DAILY biotin 10,000 mcg Capsule 10,000 mcg PO DAILY calcium carbonate-vitamin D3 [Calcium + D] 600 mg-5 mcg (200 unit) Tablet 1 tab PO TID ergocalciferol (vitamin D2) [Vitamin D2] 1,250 mcg (50,000 unit) capsule 1,250 mcg PO .[id number] cyanocobalamin (vitamin B-12) 1,000 mcg Tablet 1,000 mcg PO DAILY escitalopram oxalate 20 mg tablet 20 mg PO DAILY ferrous sulfate 325 mg (65 mg iron) Tablet 325 mg PO BID gabapentin 600 mg tablet 600 mg PO TID levothyroxine 88 mcg tablet 88 mcg PO DAILYBB Linzess 145 mcg capsule 145 mcg PO DAILY loratadine 10 mg Tablet 10 mg PO DAILY PRN (Reason: Allergy Symptoms) magnesium oxide 400 mg magnesium Tablet 400 mg PO DAILY ropinirole 0.5 mg tablet 0.5 mg PO HS sotalol 80 mg tablet 80 mg PO BID Discontinued quetiapine 100 mg tablet PO HS Rx Instructions: MAY TAKE AN EXTRA 1/2 TABLET AT BEDTIME. Discharge Orders: Discharge Order (Routine); Ordered 11/11/21 Ordered By: Mikhail Sun/Other Patient Handouts: Managing Type 2 Diabetes Admission Data Admit Date/Time: 11/05/21 18:15 Attending Provider: Mikhail Horn Admit Provider: Yifan Valdez Primary Care Provider: Darwin Beckford Other Providers: Yifan Valdez ; Evan Horan ; Rebel Leos ; Av Wilson ; Angelo Hansen ; Brooke Patiño
--- NOTE | 2021-11-14 10:37 | Coding Query ---
CODING QUERY To promote full compliance with coding requirements relating to patient care, provider participation is requested in all cases of photography and prints curator uncertainty. Please assist us with the question(s) below: Coding Question(s): The ER documents, "She notes that she was discharged from [facility] with extremely high blood pressures and heart rates. She was diagnosed with a heart attack. And she was discharged" and also documents, "Patient is a 76-year-old female who presents the ER with a past medical history recent NSTEMI for weakness and shortness of breath with movement", and there is documentation on the H&P of, "76 year old female presenting to the ED with persistent dizziness, headache, fatigue, headache, and labile HR/BP for 2 weeks and had inpatient evaluation at [facility] 10/28-11/02 for the same without improvement in symptoms", however, there is no further mention of a heart attack. On the Cardiology Consult it shows an EKG on admission - anterior infarct, age undetermined, as one of the listed findings but there is no mention in any further documentation of a recent or old heart attack or NSTEMI. Please clarify below, in your clinical opinion. ( ) Recent NSTEMI within 4 weeks of this admission was monitored during this admission ( ) Old RI of more than 4 weeks - history only ( x ) No heart attack or NSTEMI or old RI was monitored during this admission ( ) Other: Please specify Physician's Response(s): Thank you Sanjuana Resendiz Principal Diagnosis: "that condition established after study, to be chiefly responsible for occasioning the admission of the patient to the hospital for care." Co-Existing Principal Diagnosis: "when two or more diagnoses equally meet the criteria for principal diagnosis as determined by the circumstances of admission, diagnostic work up, and/or therapy provided, and the Alphabetic Index, Tabular List, or another coding guideline does not provide sequencing direction, any one of the diagnoses may be sequenced first." "When the physician has documented what appears to be a current diagnosis in the body of the record, but has not included the diagnosis in the final diagnostic statement, the physician should be asked whether the diagnosis should be added." (Source Coding [facility] 2 QTR90. p3-4) ISAI
== END 2021-11-11 14:51 | disposition home or self-care (01) | DRG 516 ==
LOC: ED 13:34 → SUATTDRO 18:15 → 2S 18:15